=== PATIENT | female | born 1990 | race African-American/Black ===

== ENCOUNTER 2024-11-18 14:02 | Emergency (ER) | payer MEDICAID, SELFPAY ==
[2024-11-18 14:07] VITALS: BP 142/60; PULSE 82; RESP 16; TEMP 36.8; O2SAT 98; BMI 22.7
--- NOTE | 2024-11-18 14:07 | ED.ALLEREA ---
HPI - Allergic Reaction General Chief complaint: Skin/Abscess/Foreign Body Stated complaint: Allergic reaction Time Seen by Provider: 11/18/24 17:43 Source: patient Mode of arrival: ambulatory Limitations: no limitations History of Present Illness ED Provider: Dr. Barron HPI narrative: 34-year-old female history of allergies to seafood presented hospital today for evaluation of rash on her face and her body. 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 Patient is requesting a biopsy at this time. I discussed with the patient that we do not offer biopsy in the ER. She knows that this rash is pruritic in nature and it is spreading. Dermatology office stated that this eczema. She does have follow up in 2 weeks with dermatology office. Recently ate some seafood where she is allergic to. Related Data Previous Rx's ?Medication ?Instructions ?Recorded methylprednisolone 4 mg tablets in 4 mg PO PER PKG DIR #21 ea 11/18/24 a dose pack (Medrol (Mario)) Allergies Allergy/AdvReac Type Severity Reaction Status Date / Time No Known Allergies Allergy Verified 11/18/24 14:10 Review of Systems Review of Systems: Pertinent review of systems as mentioned in HPI. All other system otherwise negative. [facility] Past Medical History [facility] Narrative: Medical history as mentioned in HPI Social History Social History Smoked in Last 30 Days: No Use of substances other than those prescribed or required for medical reasons: No Advance Directives: No Advance Directives Information Provided: No Do you have a plan to hurt others: No Plan Physical Exam ED Exam Exam: General: Pleasant, no distress, interacting appropriately Head: Normacephalic, atraumatic Skin: Warm and dry, rash on her face appear to be scaly and pruritic in nature rash on her left forearm Psychiatric: Appropriate mood and thoughts Vital Signs: Vital Signs - 24 hr 11/18/24 14:07 11/18/24 18:09 Temperature 98.2 F 98.2 F Pulse Rate 82 82 Respiratory Rate 16 16 Blood Pressure 142/60 H 142/60 H Pulse Oximetry 98 98 Oxygen Delivery Method Room Air Room Air BMI result Body Mass Index 22.7 Course Course Course Narrative: This is an RME: Additional HPI, ROS, PE not included below will be deferred to primary provider. RME assessment and note performed by: Jewell Garay PA-C This is a 39-ni[age]-female, with a hx of hashimotos, and eczema, who presents to the ER with concerns of allergic rxn. Reports that last week she went to a warp knitting machine operator. Was prescribed hydrocortisone. Reports that she has skin darkening on her face. Reporting the area is very itchy. Started on friday. Reports she now has discoloration on her arms and legs. Plan: labs, further ER eval needed Medical Decision Making Medical Decision Making [facility] Narrative: This is a 34-year-old female presented hospital today for pruritic rash evaluation. On my exam this appears to be eczema. Likely started from her allergic reaction to seafood. We will plan to discharge patient with a Medrol Dosepak for steroids. Encouraged conservative treatment with ointment over the rash to help with dryness. This is a follow up appointment with Dermatology team. Discussed with patient that we do not do biopsy in the ER here. Patient will be discharged Differential Diagnosis Differential Diagnoses: The differential diagnosis associated with the presentation includes Eczema, dermatitis, hives, urticaria, cellulitis Lab Data [facility] Lab Attestation statement: I reviewed the patient's lab results. 11/18/24 15:07 11/18/24 15:07 Labs: Lab Results 11/18/24 Range/Units 15:07 WBC 5.1 (4.8-10.8) X10*3/uL RBC 4.55 (4.20-5.50) X10*6/uL Hgb 13.7 (12.0-16.0) g/dl Hct 40.0 (37.0-47.0) % MCV 87.9 (80.0-98.0) fL MCH 30.1 (27.0-33.0) pg MCHC 34.3 (31.0-35.0) g/dl RDW 13.1 (11.0-16.0) % Plt Count 255 (160-400) X10*3/uL MPV 10.4 (9.4-12.3) fL Immature Gran % (Auto) 0.2 (0.0-0.4) % Neut % (Auto) 49.6 (45-73) % Lymph % (Auto) 42.2 H (20-40) % [place] % (Auto) 6.6 (2-11) % Eos % (Auto) 0.8 (0-4) % Baso % (Auto) 0.6 (0-2) % Lymph # (Auto) 2.2 (1.2-4.9) X10*3/uL [place] # (Auto) 0.3 (0.1-1.2) X10*3/uL Eos # (Auto) 0.0 (0.0-0.4) X10*3/uL Baso # (Auto) 0.0 (0.0-0.2) X10*3/uL Abs Immat Gran (auto) 0.01 (0.00-0.03) X10*3/uL Absolute Neuts (auto) 2.6 (2.0-8.3) x10*3/uL Absolute Nucleated RBC 0.000 (0.0-0.012) X10*3/uL Nucleated RBC % (auto) 0.0 (0.0-0.2) /100WBC Sodium 140 (135-145) mmol/L Potassium 3.7 (3.3-5.1) mmol/L Chloride 108 (96-108) mmol/L Carbon Dioxide 24 (22-29) mmol/L Anion Gap 12 (12-20) BUN 7 L (9-16) mg/dL Creatinine 0.81 (0.5-1.4) mg/dL Estim Creat Clear Calc 87.2 Estimated GFR > 60 Random Glucose 86 (60-115) mg/dL Calcium 9.0 (8.4-10.2) mg/dL Total Bilirubin 0.3 (0.0-1.0) mg/dL AST 23 (5-31) U/L ALT 21 (0-31) U/L Alkaline Phosphatase 49 (39-117) U/L Total Protein 7.4 (6.5-8.0) g/dL Albumin 4.7 (3.5-5.0) g/dL Beta HCG, Quant < 2 mIU/mL Discharge Plan Discharge Clinical Impression: Allergic dermatitis Patient Disposition: Home, Self-Care Instructions: Dermatitis (ED) Additional Instructions: Use ointment over your rash such as vaseline. You can also use Cerave over the counter cream to help. Take benadryl as needed for itching. I will plan to send some steroids to help with the itching. Follow up with your warp knitting machine operator Prescriptions: New methylprednisolone [Medrol (Mario)] 4 mg tablets,dose pack 4 mg PO PER PKG DIR Qty: 21 0RF Interventions: ED Discharge Assessment Last Done: 11/18/24 18:09 Discharge Date/Time: 11/18/24 18:09 Print Language: Divehi
[2024-11-18 15:10] LABS: MANUAL DIFF FLAG NO
[2024-11-18 15:14] LABS: Hematocrit 40.0 % (37.0-47.0); Hemoglobin 13.7 g/dl (12.0-16.0); Imm Gran Abs Auto 0.01 X10*3/uL (0.00-0.03); Imm Gran Pct Auto 0.2 % (0.0-0.4); Lymphocytes Absolute Auto 2.2 X10*3/uL (1.2-4.9); Mean Corpuscular HGB Conc 34.3 g/dl (31.0-35.0); Mean Corpuscular Hemoglobin 30.1 pg (27.0-33.0); Mean Corpuscular Volume 87.9 fL (80.0-98.0); NRBC Abs Auto 0.000 X10*3/uL (0.0-0.012); NRBC Pct Auto 0.0 /100WBC (0.0-0.2); Platelet Count 255 X10*3/uL (160-400); Red Blood Count 4.55 X10*6/uL (4.20-5.50); White Blood Count 5.1 X10*3/uL (4.8-10.8)
[2024-11-18 15:34] LABS: Alanine Aminotransferase 21 U/L (0-31); Albumin Level 4.7 g/dL (3.5-5.0); Alkaline Phosphatase 49 U/L (39-117); Anion Gap 12 (12-20); Aspartate Amino Transferase 23 U/L (5-31); Blood Urea Nitrogen 7 mg/dL (9-16); Calcium 9.0 mg/dL (8.4-10.2); Carbon Dioxide 24 mmol/L (22-29); Chloride 108 mmol/L (96-108); Creatinine Clr Calc Pharmacy 87.2; Estimated Glomerular Filt Rate > 60; Potassium 3.7 mmol/L (3.3-5.1); Sodium 140 mmol/L (135-145); Total Protein 7.4 g/dL (6.5-8.0)
[2024-11-18 18:09] VITALS: BP 142/60; PULSE 82; RESP 16; TEMP 36.8; O2SAT 98
--- OUTSIDE RECORDS SUMMARY | 2024-11-18 20:01 | XMS_ITS | Encounter Summary ---
Author Organization [facility] Address [address] [place] [address] Phone Care Team Providers Care Wheelchair Rental Clerk Name Role Phone [facility] Primary Care Provide r [facility] Stephanie Josette [facility] Primary Care Provide r [facility] Stephanie Josette [facility] Unavailable Jenny Emerson PA-C Unavailable Encounter Details Date Type Department Care Team (Late st Contact Info) Description 09/29/2024 Ancillary Orders [facility], X-Ray - [address] [place] [address] [facility] [address] [place] [address] Upper back pain (Primary Dx); Pain in shoulder region, right; Pain in shoulder region, left Social History Tobacco Use Types Packs/Day Years Used Date Smoking Tobacco: Never Smokeless Tobacco: Never Alcohol Use Standard Drinks/Week Comments No 0 (1 standard drink = 0.6 oz pur e alcohol) Education Answer Date Recorded Are you interested in more education? Not on andres e 06/21/2022 Are you concerned about learning? Not on file 06/21/2022 No 06/21/2022 No 06/21/2022 Digital Access Answer Date Recorded No 07/19/2022 No 07/19/2022 Reliable internet access at home? Not on file 07/19/2022 Device with a working camera? Not on file Intimate Partner Violence Answer Date R ecorded Are you denied basic needs s uch as food, clothing, or medical care? No 03/06/2023 In the past 12 months have y ou been in a relationship with a person who hurts, threatens, or tries to control you? No 03/06/2023 Are you denied basic needs s uch as food, clothing, or medical care? No 03/06/2023 In the past 12 months have y ou been in a relationship with a person who hurts, threatens, or tries to control you? 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 Narrative 10/02/2024 6:57 AM EDT XR CERVICAL SPINE 2-3 VIEWS, XR THORACIC SPINE 3 VIEW, XR SHOULDER 2 OR MORE VIEWS (RIGHT), XR SHOULDER 2 OR MORE VIEWS (LEFT) Referring clinician's provided indication for this examination in Epic: Pain COMPARISON: FINDINGS: Normal cervical spine alignment. The open-mouth view reveals an intact dens and normal alignment of the C1 lateral masses on C2. No prevertebral soft tissue swelling. Unremarkable lumbar spine alignment. No compression fracture or significant degenerative change. Both shoulders demonstrate normal alignment without evidence of fracture or significant degenerative change. Procedure Note Rogers Linares MD - 10/02/2024 XR CERVICAL SPINE 2-3 VIEWS, XR THORACIC SPINE 3 VIEW, XR SHOULDER 2 ORMORE VIEWS (RIGHT), XR SHOULDER 2 OR MORE VIEWS (LEFT) Referring clinician's provided indication for this examination in Epic:Pain COMPARISON: FINDINGS: Normal cervical spine alignment. The open-mouth view reveals an intactdens and normal alignment of the C1 lateral masses on C2. No prevertebralsoft tissue swelling. Unremarkable lumbar spine alignment. No compression fracture orsignificant degenerative change. Both shoulders demonstrate normal alignment without evidence of fractureor significant degenerative change. IMPRESSION: No acute osseous abnormality. [facility] IM XR SPINE Final Result * XR SHOULDER 2 VIEWS (RIGHT) (10/01/2024 9:15 AM EDT) Anatomical Region Laterality Modality Shoulder Right Computed Radiogr aphy 10/02/2024 6:55 AM EDT Impressions 10/02/2024 6:57 AM EDT No acute osseous abnormality. Narrative 10/02/2024 6:57 AM EDT XR CERVICAL SPINE 2-3 VIEWS, XR THORACIC SPINE 3 VIEW, XR SHOULDER 2 OR MORE VIEWS (RIGHT), XR SHOULDER 2 OR MORE VIEWS (LEFT) Referring clinician's provided indication for this examination in Epic: Pain COMPARISON: FINDINGS: Normal cervical spine alignment. The open-mouth view reveals an intact dens and normal alignment of the C1 lateral masses on C2. No prevertebral soft tissue swelling. Unremarkable lumbar spine alignment. No compression fracture or significant degenerative change. Both shoulders demonstrate normal alignment without evidence of fracture or significant degenerative change. Procedure Note Rogers Linares MD - 10/02/2024 XR CERVICAL SPINE 2-3 VIEWS, XR THORACIC SPINE 3 VIEW, XR SHOULDER 2 ORMORE VIEWS (RIGHT), XR SHOULDER 2 OR MORE VIEWS (LEFT) Referring clinician's provided indication for this examination in Epic:Pain COMPARISON: FINDINGS: Normal cervical spine alignment. The open-mouth view reveals an intactdens and normal alignment of the C1 lateral masses on C2. No prevertebralsoft tissue swelling. Unremarkable lumbar spine alignment. No compression fracture orsignificant degenerative change. Both shoulders demonstrate normal alignment without evidence of fractureor significant degenerative change. IMPRESSION: No acute osseous abnormality. [facility] CHECK WEIGHER IMG XR UPPER EXTREMIT Y Final Result * XR SHOULDER 2 VIEWS (LEFT) (10/01/2024 9:14 AM EDT) Anatomical Region Laterality Modality Shoulder Left Computed Radiogr aphy 10/02/2024 6:55 AM EDT Impressions 10/02/2024 6:57 AM EDT No acute osseous abnormality. Narrative 10/02/2024 6:57 AM EDT XR CERVICAL SPINE 2-3 VIEWS, XR THORACIC SPINE 3 VIEW, XR SHOULDER 2 OR MORE VIEWS (RIGHT), XR SHOULDER 2 OR MORE VIEWS (LEFT) Referring clinician's provided indication for this examination in Epic: Pain COMPARISON: FINDINGS: Normal cervical spine alignment. The open-mouth view reveals an intact dens and normal alignment of the C1 lateral masses on C2. No prevertebral soft tissue swelling. Unremarkable lumbar spine alignment. No compression fracture or significant degenerative change. Both shoulders demonstrate normal alignment without evidence of fracture or significant degenerative change. Procedure Note Rogers Linares MD - 10/02/2024 XR CERVICAL SPINE 2-3 VIEWS, XR THORACIC SPINE 3 VIEW, XR SHOULDER 2 ORMORE VIEWS (RIGHT), XR SHOULDER 2 OR MORE VIEWS (LEFT) Referring clinician's provided indication for this examination in Epic:Pain COMPARISON: FINDINGS: Normal cervical spine alignment. The open-mouth view reveals an intactdens and normal alignment of the C1 lateral masses on C2. No prevertebralsoft tissue swelling. Unremarkable lumbar spine alignment. No compression fracture orsignificant degenerative change. Both shoulders demonstrate normal alignment without evidence of fractureor significant degenerative change. IMPRESSION: No acute osseous abnormality. [facility] Josette [facility] CHECK WEIGHER IMG XR UPPER EXTREMIT Y Final Result * XR CERVICAL SPINE 2-3 VIEWS (10/01/2024 9:12 AM EDT) Anatomical Region Laterality Modality C-spine Computed Radiogr aphy 10/02/2024 6:55 AM EDT Impressions 10/02/2024 6:57 AM EDT No acute osseous abnormality. Narrative 10/02/2024 6:57 AM EDT XR CERVICAL SPINE 2-3 VIEWS, XR THORACIC SPINE 3 VIEW, XR SHOULDER 2 OR MORE VIEWS (RIGHT), XR SHOULDER 2 OR MORE VIEWS (LEFT) Referring clinician's provided indication for this examination in Epic: Pain COMPARISON: FINDINGS: Normal cervical spine alignment. The open-mouth view reveals an intact dens and normal alignment of the C1 lateral masses on C2. No prevertebral soft tissue swelling. Unremarkable lumbar spine alignment. No compression fracture or significant degenerative change. Both shoulders demonstrate normal alignment without evidence of fracture or significant degenerative change. Procedure Note Rogers Linares MD - 10/02/2024 XR CERVICAL SPINE 2-3 VIEWS, XR THORACIC SPINE 3 VIEW, XR SHOULDER 2 ORMORE VIEWS (RIGHT), XR SHOULDER 2 OR MORE VIEWS (LEFT) Referring clinician's provided indication for this examination in Epic:Pain COMPARISON: FINDINGS: Normal cervical spine alignment. The open-mouth view reveals an intactdens and normal alignment of the C1 lateral masses on C2. No prevertebralsoft tissue swelling. Unremarkable lumbar spine alignment. No compression fracture orsignificant degenerative change. Both shoulders demonstrate normal alignment without evidence of fractureor significant degenerative change. IMPRESSION: No acute osseous abnormality. [facility] Josette CASTRO IMG XR SPINE Final Result documented in this encounter Visit Diagnoses Diagnosis Upper back pain- Primary Unspecified backache Pain in shoulder region, right Pain in shoulder region, left Upper back pain Unspecified backache Pain in shoulder region, left Pain in shoulder region, right Upper back pain Unspecified backache documented in this encounter Care Teams Wheelchair Rental Clerk Relationship Specialty Start Date End Date [place], [place] GLORIA Finch [address] [place] [address] PCP - General Nurse Practitioner 09/29/24 11/08/24 [place], [place] GLORIA Finch [address] [place] [phone] PCP - General Nurse Practitioner 11/09/24 [place], [place] GLORIA Finch [address] [place] [phone] Nurse Practitioner 11/09/24 Jenny Emerson PA-C [address] [place] [phone] [email or web address] Physician Jewel Bearing Facer Physician Jewel Bearing Facer 07/14/24 documented as of this encounter Additional Source Comments The information contained in this document represents components of the legal health record. It is not the complete legal health record.[facility]
--- OUTSIDE RECORDS SUMMARY | 2024-11-18 20:01 | XMS_ITS | Encounter Summary ---
Author Organization [facility] Address [address] [place] [address] Phone Care Team Providers Care Assistant Vice President Name Role Phone [facility] Primary Care Provide r [facility] Primary Care Provide r [facility] Primary Care Provide r [facility] Unavailable Jenny Emerson PA-C Unavailable [phone] Encounter Details Date Type Department Care Team (Late st Contact Info) Description 07/01/2024 Procedure Pass OR Admitting Dept - Virtual Department [address] [place] [address] Social History Tobacco Use Types Packs/Day Years [...] Upcoming Encounters Date Type Department Care Team (Late st Contact Info) Description 12/02/2024 11:30 AM EDT Office [facility] [address] [place] [phone] Dee Larsen MD [address] [place] [address] documented as of this encounter Visit Diagnoses Not on filedocumented in this encounter Care Teams Assistant Vice President Relationship Specialty Start Date End Date Javier Stephanie GLORIA Finch PCP - General Nurse Practitioner 10/30/23 09/28/24 [facility] [address] [place] [address] PCP - General Nurse Practitioner 09/29/24 11/08/24 Stephanie Herrera FNP [address] [place] [address] PCP - General Nurse Practitioner 11/09/24 Stephanie Herrera FNP [address] [place] [address] Nurse Practitioner 11/09/24 Jenny Emerson PA-C [address] [place] [phone] [email or web address] Physician Blade Grader Operator Physician Blade Grader Operator 07/14/24 documented as of this encounter Additional Source Comments The information contained in this document represents components of the legal health record. It is not the complete legal health record.[facility]
--- OUTSIDE RECORDS SUMMARY | 2024-11-18 20:01 | XMS_ITS | Encounter Summary ---
Author Organization [facility] Address [address] [place] [address] Phone Care Team Providers Care Film Processing Utility Worker Name Role Phone [facility] Stephanie Josette [facility] Primary Care Provide r [place], [place] Josette [facility] Primary Care Provide r [place], [place] Josette [facility] Primary Care Provide r [place], [place] Josette [facility] Unavailable [phone] Jenny Emerson PA-C Unavailable Encounter Details Date Type Department Care Team (Late st Contact Info) Description 07/15/2024 Transcribe Orders [facility] Specimen Processing [address] [place] [address] [place], [place] Josette [facility] [address] [place] [address] Social History Tobacco Use Types Packs/Day Years [...] Upcoming Encounters Date Type Department Care Team ([facility] st Contact Info) Description 12/02/2024 11:30 AM EDT Office Visit [facility] [address] [place] [phone] Dee Larsen MD [address] [place] [phone] documented as of this encounter Visit Diagnoses Not on filedocumented in this encounter Care Teams Film Processing Utility Worker Relationship Specialty Start Date End Date Stephanie Herrera FNP PCP - General Nurse Practitioner 10/30/23 09/28/24 Stephanie Herrera FNP [address] [place] [address] PCP - General Nurse Practitioner 09/29/24 11/08/24 Stephanie Herrera FNP [address] [place] [address] PCP - General Nurse Practitioner 11/09/24 Stephanie Herrera FNP [address] [place] [address] Nurse Practitioner 11/09/24 Jenny Emerson PA-C [address] [place] [phone] [email or web address] Physician Warehouse Distribution Specialist Physician Warehouse Distribution Specialist 07/14/24 documented as of this encounter Additional Source Comments The information contained in this document represents components of the legal health record. It is not the complete legal health record.[facility]
--- OUTSIDE RECORDS SUMMARY | 2024-11-18 20:01 | XMS_ITS | Encounter Summary ---
Author Organization [employer] Address [address] [facility] [address] [place] [address] Care Team Providers Care Machine Bobbin Winder Name Role Phone Stephanie Herrera [facility] Primary Care Provider [phone] Reason for Visit * Reason Comments Med Refill Encounter Details Date Type Department Care Team (Late st Contact Info) Description 05/29/2024 Refill [place] [facility] [address] [place] [address] [facility] [address] [place] [address] Anxiety; Depressive disorder Social History Tobacco Use Types Packs/Day Years Used Date Smoking Tobacco: Never Smokeless Tobacco: Never Alcohol Use Standard Drinks/Week Comments Yes 1 (1 standard drink = 0.6 oz pure alcohol) few glasses of wine on the weekend Housing Stability Answer Date Recorded What is your housing situation today? I have te[place] recinos 11/27/[address] you li ve. Do you have problems with any of the following? I am not sure 11/27/2023 Food Insecurity Answer Date Recorded Within the past 12 months, y ou worried that your food would run out before you got money to buy more: Never True 11/27/2023 Within the past 12 months,th e food you bought just didn't last and you didn't have enough money to get more: Never True 04/2023 Transportation Answer Date Recorded In the past 12 months, has l ack of transportation kept you from medical appts, meetings, work or from getting things needed for daily living? No 11/27/2023 Utilities Answer Date Recorded In the past 12 months, has t he electric, gas, oil or water company threatened to shut off services in your home? 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 [address] [place] [address] [facility] [address] [place] [address] 12/23/2024 10:20 AM EDT Office Visit [facility] [address] [place] [address] [facility] [address] [place] [address] documented as of this encounter Visit Diagnoses Diagnosis Anxiety Anxiety state, unspecified Depressive disorder Depressive disorder, not elsewhere classified documented in this encounter Care Teams Machine Bobbin Winder Relationship Specialty Start Date End Date [facility] [address] [place] [address] PCP - General Family Medicine 03/28/22 documented as of this encounter
--- OUTSIDE RECORDS SUMMARY | 2024-11-18 20:01 | XMS_ITS | Encounter Summary ---
Author Organization [employer] Address [address] [place] [address] 7 [place] [address] Care Team Providers Care Make Up Artist Name Role Phone [facility] Primary Care Provider +1 [phone] Encounter Details Date Type Department Care Team (Latest Contact Info) Description 12/04/2018 [facility] CONVERSIONS Dental, Provider, DDS Social History Tobacco Use Types Packs/Day Years Used Date Smoking Tobacco: Never Assessed Comments Unknown Sex and Gender Information Value Date Recorded Sex Assigned at Female 04/03/2022 10:00 AM EST Legal Sex Female 5:35 PM EDT Gender Identity Female 04/03/2022 10:00 AM EST Sexual Orientation Straight 04/03/2022 10 :05 AM EST documented as of this encounter Plan of Treatment Upcoming Encounters Date Type Department Care Team (Late st Contact Info) Description 11/19/2024 2:[address] [facility] MEDICAL [address] [place] [address] [facility] 70 [place] [address] 12/23/2024 10:20 AM EDT Office Visit [facility] MEDICAL [address] [place] [address] [facility] 70 [place] [address] documented as of this encounter Visit Diagnoses Not on filedocumented in this encounter Care Teams Make Up Artist Relationship Specialty Start Date End Date [place], [place] [facility] 70 [place] [address] PCP - General Family Medicine 03/28/22 documented as of this encounter
--- OUTSIDE RECORDS SUMMARY | 2024-11-18 20:01 | XMS_ITS | Encounter Summary ---
Author Organization [employer] Address [address] [place] [address] 7 [place] [address] Care Team Providers Care Chemicals Distiller Name Role Phone [facility] Primary Care Provider +1 [phone] Encounter Details Date Type Department Care Team (Latest Contact Info) Description 05/15/2018 Abstract [facility] CONVERSIONS Dental, Provider, DDS Social [...] Info) Description 11/19/2024 2:00 PM EDT Telemedicine [facility] MEDICAL [address] [place] [address] [facility] 70 [place] [address] 12/23/2024 10:20 AM EDT Office Visit [facility] MEDICAL 70 [place] [address] [facility] 70 [place] [address] documented as of this encounter Visit Diagnoses Not on filedocumented in this encounter Care Teams Chemicals Distiller Relationship Specialty Start Date End Date [place], [place] [facility] 70 [place] [address] PCP - General Family Medicine 03/28/22 documented as of this encounter
--- OUTSIDE RECORDS SUMMARY | 2024-11-18 20:01 | XMS_ITS | Encounter Summary ---
Author Organization [facility] Address [address] [place] [address] Phone Care Team Providers Care Chro Name Role Phone Edinson Miles MD Primary Care Provider Pcp, Unknown Primary Care Provider Unavailabl e [facility] Primary Care Provide r [facility] Primary Care Provide r [facility] Primary Care Provide r [facility] Primary Care Provide r [facility] Unavailable Jenny Emerson PA-C Unavailable Encounter Details Date Type Department Care Team (Late st Contact Info) Description 08/29/2017 Procedure Pass [facility] Procedures [address] [place] [address] Social History Tobacco Use Types Packs/Day Years Used Date Smoking Tobacco: Never Smokeless Tobacco: Never Alcohol Use Standard Drinks/Week Comments No 0 (1 standard drink = 0.6 oz pur e alcohol) Comments No Sex and Gender Information Value [...] [facility] [address] [place] [address] Dee Larsen MD [address] [place] [address] [place] [address] documented as of this encounter Visit Diagnoses Not on filedocumented in this encounter Care Teams Chro Relationship Specialty Start Date End Date Edinson Miles MD [address] [place] [address], 2nd [place] [address] PCP - General Internal Medicine 01/24/17 11/29/18 Pcp, Unknown PCP - General 11/30/18 05/16/22 [place], [place] GLORIA Finch PCP - General Nurse Practitioner 05/17/22 10/29/23 [place], [place] GLORIA Finch PCP - General Nurse Practitioner 10/30/23 09/28/24 [place] GLORIA Finch 70 [place] [address] PCP - General Nurse Practitioner 09/29/24 11/08/24 [place], [place] GLORIA Finch 70 [place] [address] PCP - General Nurse Practitioner 11/09/24 Stephanie Herrera FNP 70 [place] [address] Nurse Practitioner 11/09/24 Jenny Emerson PA-C [address] [place] [address] [email or web address] Physician Bookkeeping Service Sales Agent Physician Bookkeeping Service Sales Agent 07/14/24 documented as of this encounter Additional Source Comments The information contained in this document represents components of the legal health record. It is not the complete legal health record.[facility]
--- OUTSIDE RECORDS SUMMARY | 2024-11-18 20:01 | XMS_ITS | Encounter Summary ---
Author Organization [employer] Address [address] [place] [address] 7 [place] [address] Care Team Providers Care Steel Erector Name Role Phone [facility] Primary Care Provider +1 [phone] Encounter Details Date Type Department Care Team (Latest Contact Info) Description 10/29/2019 Abstract [facility] CONVERSIONS Dental, Provider, DDS Social [...] Description 11/19/2024 2:[address] [facility] MEDICAL [address] [place] [address] [facility] 70 [place] [address] 12/23/2024 10:20 AM EDT Office Visit [facility] MEDICAL [address] [place] [address] [facility] 70 [place] [address] documented as of this encounter Visit Diagnoses Not on filedocumented in this encounter Care Teams Steel Erector Relationship Specialty Start Date End Date [place], [place] [facility] 70 [place] [address] PCP - General Family Medicine 03/28/22 documented as of this encounter
--- OUTSIDE RECORDS SUMMARY | 2024-11-18 20:01 | XMS_ITS | Encounter Summary ---
Author Organization [employer] Address [address] [facility] 7t [place] [address] Care Team Providers Care Flatbed Press Operator Name Role Phone [facility] Primary Care Provider +1 [phone] Encounter Details Date Type Department Care Team (Late st Contact Info) Description 05/13/2022 Orders Only [facility] MEDICAL [address] [place] [address] Provider, MD Yisel Social History Tobacco Use Types Packs/Day Years Used Date Smoking Tobacco: Never Smokeless Tobacco: Never Alcohol Use Standard Drinks/Week Comments Yes 3 (1 standard drink = 0.6 oz pure alcohol) few glasses of wine on the weekend Depression Answer Date Recorded Patient Health Questionnaire-2 Score 0 04/03/2022 Comments Unknown Sex and Gender Information Value Date Recorded Sex Assigned at Female 04/03/2022 10:00 AM EST Legal Sex Female 5:35 PM EDT Gender Identity Female 04/03/2022 10:00 AM EST Sexual Orientation Straight 04/03/2022 10 :05 AM EST 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 No / Unsure 05/14/2022 2:02 PM EDT documented as of this encounter Plan of Treatment Upcoming Encounters Date Type Department Care Team (Late st Contact Info) Description 11/19/2024 2:00 PM EDT Telemedicine [facility] MEDICAL 70 [place] [address] [facility] 70 [place] [address] 12/23/2024 10:20 AM EDT Office Visit [facility] MEDICAL [address] [place] [address] [facility] REVENUE RESEARCH ANALYST [address] [place] [address] documented as of this encounter Procedures Procedure Name Priority Date/Time Associated Diagnosis Comments CHLAMYDIA/GONORRHEA - URINE ([facility]) Routine 05/02/2022 CULTURE, URINE, ROUTINE Routine 05/02/2022 documented in this encounter Results * Culture, Urine, Routine (05/02/2022) Urine Urine specimen obtained by clean catch procedure / Unknown us Historical Provider LAB MICROBIOLOGY - GENERA L ORDERABLES Edited Result - Final * Chlamydia/Gonorrhea, Urine ([facility]) (05/02/2022) Urine us Historical Provider LAB URINE ORDERABLES Edit ed Result - Final documented in this encounter Visit Diagnoses Not on filedocumented in this encounter Care Teams Flatbed Press Operator Relationship Specialty Start Date End Date Stephanie Herrera REVENUE RESEARCH ANALYST [address] [place] [address] PCP - General Family Medicine 03/28/22 documented as of this encounter
--- OUTSIDE RECORDS SUMMARY | 2024-11-18 20:01 | XMS_ITS | Encounter Summary ---
Author Organization [facility] Address [address] [facility] [address] [place] [address] Phone Care Team Providers Care Attending Psychiatrist Name Role Phone Edinson Miles MD Primary Care Provider Pcp, Unknown Primary Care Provider Unavailabl e [facility] Primary Care Provide r [facility] Primary Care Provide r [facility] Primary Care Provide r [facility] Primary Care Provide r [facility] Unavailable Jenny Emerson PA-C Unavailable Encounter Details Date Type Department Care Team (Late st Contact Info) Description 04/02/2017 Ancillary Orders [facility] [address] [place] [address] [place] [address] Kinsey Bell, CLARE [address] [facility] [facility], [address] [place] [address] Social History Tobacco Use Types Packs/Day Years Used Date Smoking Tobacco: Never Smokeless Tobacco: Never Alcohol Use Standard Drinks/Week Comments No 0 (1 standard drink = 0.6 oz pur e alcohol) Comments Yes Sex and Gender Information Value Date Recorded [...] Office Visit [facility] [address] [place] [phone] Dee Larsen MD [address] [place] [address] documented as of this encounter Visit Diagnoses Not on filedocumented in this encounter Care Teams Attending Psychiatrist Relationship Specialty Start Date End Date Edinson Miles MD [address] [place] [address], 2nd [place] [address] PCP - General Internal Medicine 01/24/17 11/29/18 Pcp, Unknown PCP - General 11/30/18 05/16/22 Stephanie Herrera FNP PCP - General Nurse Practitioner 05/17/22 10/29/23 Stephanie Herrera FNP PCP - General Nurse Practitioner 10/30/23 09/28/24 Stephanie Herrera FNP 70 [place] [address] PCP - General Nurse Practitioner 09/29/24 11/08/24 Stephanie Herrera FNP 70 [place] [address] PCP - General Nurse Practitioner 11/09/24 Stephanie Herrera FNP 70 [place] [address] Nurse Practitioner 11/09/24 Jenny Emerson PA-C [address] [place] [phone] [email or web address] Physician Fern Gatherer Physician Fern Gatherer 07/14/24 documented as of this encounter Additional Source Comments The information contained in this document represents components of the legal health record. It is not the complete legal health record.[facility]
--- OUTSIDE RECORDS SUMMARY | 2024-11-18 20:01 | XMS_ITS | Encounter Summary ---
Author Organization [employer] Address [address] [place] [address] [facility] [place] [address] Care Team Providers Care Earth Science Teacher Name Role Phone [facility] Primary Care Provider +1 [phone] Encounter Details Date Type Department Care Team (Latest Contact Info) Description 11/13/2021 Abstract [facility] CONVERSIONS Dental, Provider, DDS Social [...] Info) Description 11/19/2024 2:00 PM EDT Telemedicine [facility] MEDICAL 70 [place] [address] [facility] 70 [place] [address] 12/23/2024 10:20 AM EDT Office Visit [facility] MEDICAL 70 [place] [address] [facility] 70 [place] [address] documented as of this encounter Visit Diagnoses Not on filedocumented in this encounter Care Teams Earth Science Teacher Relationship Specialty Start Date End Date [place], [place] [facility] 70 [place] [address] PCP - General Family Medicine 03/28/22 documented as of this encounter
--- OUTSIDE RECORDS SUMMARY | 2024-11-18 20:01 | XMS_ITS | Encounter Summary ---
Author Organization [facility] Address [address] [facility] [address] [place] [address] Phone Care Team Providers Care Segmental Wall Installer Name Role Phone Edinson Miles MD Primary Care Provider Pcp, Unknown Primary Care Provider Unavailabl e [facility] Primary Care Provide r [facility] Primary Care Provide r [facility] Primary Care Provide r [facility] Primary Care Provide r [facility] Unavailable Jenny Emerson PA-C Unavailable Encounter Details Date Type Department Care Team (Late st Contact Info) Description 04/02/2017 Ancillary Orders [facility] [address] [place] [address] [place] [address] Kinsey Bell, LCARE 22 [facility], [address] [place] [address] Social History Tobacco Use Types Packs/Day Years [...] Office Visit [facility] [address] [place] [phone] Dee Larsen MD [address] [place] [address] documented as of this encounter Visit Diagnoses Not on filedocumented in this encounter Care Teams Segmental Wall Installer Relationship Specialty Start Date End Date Edinson Mlies MD [address] [place] [address], 2nd [place] [address] PCP - General Internal Medicine 01/24/17 11/29/18 Pcp, Unknown PCP - General 11/30/18 05/16/22 Stephanie Herrera FNP PCP - General Nurse Practitioner 05/17/22 10/29/23 Stephanie Herrera FNP PCP - General Nurse Practitioner 10/30/23 09/28/24 Stephanie Herrera FNP 70 [place] [address] PCP - General Nurse Practitioner 09/29/24 11/08/24 Stephanie Herrera FNP 70 [place] [address] PCP - General Nurse Practitioner 11/09/24 Stephanie Herrera FNP 70 [place] [address] Nurse Practitioner 11/09/24 Jenny Emerson PA-C [address] [place] [address] [email or web address] Physician Project Landscape Architect Physician Project Landscape Architect 07/14/24 documented as of this encounter Additional Source Comments The information contained in this document represents components of the legal health record. It is not the complete legal health record.[facility]
--- OUTSIDE RECORDS SUMMARY | 2024-11-18 20:01 | XMS_ITS | Encounter Summary ---
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 [address] [facility] 70 [place] [address] 12/23/2024 10:20 AM EDT Office Visit [facility] MEDICAL 70 [place] [address] [facility] 70 [place] [address] documented as of this encounter Visit Diagnoses Not on filedocumented in this encounter Care Teams Material Requirements Planning Manager Relationship Specialty Start Date End Date [place], [place] [facility] 70 [place] [address] PCP - General Family Medicine 03/28/22 documented as of this encounter
--- OUTSIDE RECORDS SUMMARY | 2024-11-18 20:01 | XMS_ITS | Encounter Summary ---
Author Organization [facility] Address [address] [place] [address] Phone Care Team Providers Care Tapering Machine Operator Name Role Phone [facility] Primary Care Provide r [facility] Primary Care Provide r [facility] Primary Care Provide r [facility] Primary Care Provide r [facility] Unavailable Jenny Emerson PA-C Unavailable Encounter Details Date Type Department Care Team (Latest Contact Info) Description 10/28/2023 Transcribe Orders Virtual Department 30 [place] [address] Denisse Yates NP [address] [place] [address] Acquired hypothyroidism (Primary Dx) Social History Tobacco Use Types Packs/Day Years [...] Upcoming Encounters Date Type Department Care Team ([facility] st Contact Info) Description 12/02/2024 11:30 AM EDT Office Visit [facility], [address] [phone] Dee Larsen MD [address] [place] [address] documented as of this encounter Visit Diagnoses Diagnosis Acquired hypothyroidism- Primary Unspecified hypothyroidism documented in this encounter Care Teams Tapering Machine Operator Relationship Specialty Start Date End Date Stephanie Herrera FNP PCP - General Nurse Practitioner 05/17/22 10/29/23 Stephanie Herrera FNP PCP - General Nurse Practitioner 10/30/23 09/28/24 Stephanie Herrera FNP 70 [place] [address] PCP - General Nurse Practitioner 09/29/24 11/08/24 Stephanie Herrera FNP [address] [place] [address] PCP - General Nurse Practitioner 11/09/24 Stephanie Herrera FNP 70 [place] [address] Nurse Practitioner 11/09/24 Jenny Emerson PA-C [address] [place] [address] [email or web address] Physician Referral Clerk Physician Referral Clerk 07/14/24 documented as of this encounter Additional Source Comments The information contained in this document represents components of the legal health record. It is not the complete legal health record.[facility]
--- OUTSIDE RECORDS SUMMARY | 2024-11-18 20:01 | XMS_ITS | Encounter Summary ---
Author Organization [employer] Address [address] 7t [place] [address] Care Team Providers Care Head Of Housekeeping Name Role Phone Stephanie Herrera [facility] Primary Care Provider [phone] [phone] Encounter Details Date Type Department Care Team (Late st Contact Info) Description 07/02/2024 Orders Only [facility] Information Management [address] [place] [address] Stephanie Herrera, [facility] [address] [place] [address] Social History Tobacco Use Types Packs/Day Years [...] 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 Not on file documented as of this encounter Plan of Treatment Upcoming Encounters Date Type Department Care Team (Late st Contact Info) Description 11/19/2024 2:00 PM EDT Telemedicine [address] [address] 12/23/2024 10:20 AM EDT Office Visit [address] [address] [facility] 70 [place] [address] documented as of this encounter Procedures Procedure Name Priority Date/Time Associated Diagnosis Comments SAÚL SCREEN, IFA, W/REFL TITER AND PATTERN Routine 06/30/2024 2:45 PM EDT ANTI-CCP (CYCLIC CITRULLINATED PEPTIDE) ABS, IGG AND IGA Routine 06/30/2024 12:00 PM EDT C-REACTIVE PROTEIN Routine 06/30/2024 10 :53 AM EDT documented in this encounter Results * SAÚL Screen,IFA, with Reflex to Titer and Pattern (06/30/2024 2:45 PM EDT) Blood Venous blood specimen / Unknown [facility] LAB BLOOD ORDERABLES Isha l Result * Anti-CCP (Cyclic Citrullinated Peptide) Antibodies, IgG and IgA (RDL) (06/30/2024 12:00 PM EDT) Blood Venous blood specimen / Unknown [facility] LAB BLOOD ORDERABLES Isha l Result * C-reactive Protein (06/30/2024 10:53 AM EDT) Blood Venous blood specimen / Unknown [facility] LAB BLOOD ORDERABLES Isha l Result documented in this encounter Visit Diagnoses Not on filedocumented in this encounter Care Teams Head Of Housekeeping Relationship Specialty Start Date End Date [facility] [address] [place] [address] PCP - General Family Medicine 03/28/22 documented as of this encounter
--- OUTSIDE RECORDS SUMMARY | 2024-11-18 20:01 | XMS_ITS | Clinical Summary ---
Author Organization [facility] Address [address] [place] [address] Phone Care Team Providers Care Weather Forcaster Name Role Phone [place], [place] Josette [facility] Primary Care Provide r [place], [place] Josette [facility] Unavailable Jenny Emerson PA-C Unavailable Allergies No known active allergies Medications levothyroxine (SYNTHROID, LEVOTHROID) 88 MCG tablet Take 88 mcg by mouth. 03/08/2024 Active Hospital, Clinic, or Other Facility Administered Medication Ordered Dose Route Frequency Start Date End Date Status copper (PARAGARD) intrauterine device 1 eachIndications:Encounte r for insertion of intrauterine contraceptive device 1 each Utrn Every 10 years 07/18/2022 Active Active Problems Problem Noted Date Diagnosed Date Request for sterilization 06/09/2024 Assessment & Plan (06/09/2024 2:48 PM EDT): Sterilization counseling was performed today. Discussed with patient risks of permanent sterilization including failure (i.e. ), high risk of ectopic if were to occur (50%). Discussed the possible option and/or need for IVF if is desired, which is also expensive and also usually not covered by insurance if patient has undergone a sterilization procedure. Discussed alternative methods of long-term reversible contraception, including IUDs, Nexplanon, and vasectomy, which patient declines. Discussed she can also use control such as depo, pills, patch, Nuvaring, or condoms. Permanent sterilization via laparoscopy was reviewed. After detailed discussed as noted above, patient continued to desire permanent sterilization. Valentin Uzhun papers signed 06/08/24. Case request submitted. Pelvic pain 09/16/2023 Assessment & Plan (06/09/2024 2:47 PM EDT): Pelvic exam unremarkable Patient with normal pelvic US 10/2023 Patient reports pain is mild, intermittent, typically positional, and resolves on its own No new recommendations regarding management Assessment & Plan (09/16/2023 7:26 PM EDT): This was a very lengthy visit, explained to her that it is possible she could have urinary tract infection, but the bladder is nontender on that fortunately the office policy is that we cannot do urine dips in the office. There are some findings and symptoms suggestive of uterine infection, as well as other findings for that are absent (such as fever or purulent discharge.) Given that there is an IUD in place and I am concerned that she may have an early uterine infection, I encouraged the option of taking treatment with an IM shot of ceftriaxone today which we have in the office and follow that with 7 days of doxycycline. After discussion the pros and cons of this, she decided she would prefer to have the antibiotics I confirmed her decision and after I silvino up the medication she decided the last minute not to take the antibiotics, she preferred to wait for white blood cell count and a sedimentation rate to see if that would indeed confirm a pelvic infection, therefore I discarded the medication placed the order for the blood work. If her symptoms worsen she can call the doctor on-call, she can also check tomorrow for the results of the urinalysis IUD (intrauterine device) in place 07/18/2022 Overview (07/18/2022): Paragard placed 07/18/2022 Resolved Problems Problem Noted Date Diagnosed Date Resolved Date delivery delivered 08/29/2017 09/02/2017 Normal , unspecified trimester 08/28/2017 08/29/2017 Breech presentation of fetus 08/28/2017 09/02/2017 Assessment & Plan (08/29/2017 8:33 AM EDT): Breech diagnosed on admission for induction 08/28/2017. Version scheduled for 08/29/2017 Breech presentation of fetus 08/28/2017 08/29/2017 Yeast vaginitis 02/06/2017 03/05/2017 Overview (03/05/2017): Rx for clotrimazole sent to pharmacy. 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 , antepartum 01/24/2017 08/30/19 18 Assessment & Plan (01/24/2017 2:53 PM EST): Prophylaxis at 36 weeks care and examinat ion of lactating mother 01/24/2017 07/18/2022 Overview (08/26/2017): Rh O+ Flu Declined Tdap * Hgb 11.8 GTT 92 GBS * PPBC * Breech presentation, no version 09/02/2017 Encounters Date Type Department Care Team Description 10/22/2024 8:49 AM EDT - 10/22/2024 11:59 PM EDT Hospital Encounter [facility] [address] [place] [address] Stephanie Herrera FNP Discharge Disposition: Home or Self Care 10/21/2024 8:22 AM EDT - 10/21/2024 11:59 PM EDT Hospital Encounter [facility] [address] [place] [address] Stephanie Herrera FNP Discharge Disposition: Home or Self Care 10/21/2024 Transcribe Orders [facility] [address] [place] [address] Stephanie Herrera FNP Myxedema heart disease (Primary Dx); Parathyroid disease 10/21/2024 Transcribe Orders [facility] [address] [place] [address] Stephanie Herrera FNP Myxedema heart disease (Primary Dx); Parathyroid disease 10/18/2024 Transcribe Orders [facility] [address] [place] [address] Stephanie Herrera FNP Parathyroid disorder (Primary Dx); 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 10/07/2024 12:50 PM EDT - 10/07/2024 11:59 PM EDT Hospital Encounter [facility] - [address] [place] [address] Stephanie Herrera FNP Discharge Disposition: Home or Self Care 10/01/2024 8:19 AM EDT - 10/01/2024 11:59 PM EDT Hospital Encounter [facility] - [address] [place] [address] Stephanie Herrera FNP Discharge Disposition: Home or Self Care 10/01/2024 8:19 AM EDT - 10/01/2024 11:59 PM EDT Hospital Encounter [facility], X-Ray - [address] [place] [address] Stephanie Herrera FNP Discharge Disposition: Home or Self Care 10/01/2024 8:19 AM EDT - 10/01/2024 11:59 PM EDT Hospital Encounter [facility], X-Ray - [address] [place] [address] Stephanie Herrera FNP Discharge Disposition: Home or Self Care 10/01/2024 8:19 AM EDT - 10/01/2024 11:59 PM EDT Hospital Encounter [facility], X-Ray - [address] [place] [address] Stephanie Herrera FNP Discharge Disposition: Home or Self Care 09/29/2024 12:02 PM EDT - 09/29/2024 11:59 PM EDT Hospital [facility] [address] [place] [address] [facility] Disposition: Home or Self Care 09/29/2024 Transcribe Orders Virtual Department [address] [facility] [place] [address] [facility] 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); Neck pain 09/29/2024 Ancillary Orders [facility], X-Ray - [address] [place] [address] [facility] Upper back pain (Primary Dx); Pain in shoulder region, right; Pain in shoulder region, left 09/14/2024 Telephone [facility] [address] [place] [address] Blanca Lopez MD Surgery Scheduling from Last 3 Months Immunizations Immunization Administration Dates Next Due INFLUENZA, SPLIT VIRUS, TRIVALENT W/ PRESERVATIV E IM 12/02/2013 Influenza Quadrivalent w/ Preservative IM 2020 PPD Test 11/26/2016 Tdap 06/25/2017,12/02/2013 Family History Medical History Relation Comments Hypertension Father Diabetes Mother Hypertension Mother Pancreatic cancer Paternal Grandmother Relation Status Comments Father Alive Maternal Grandfather Maternal Grandmother Alive Mother Alive Paternal Grandfather Paternal Grandmother Social History Tobacco Use Types Packs/Day Years Used Date Smoking Tobacco: Never Smokeless Tobacco: Never Tobacco Cessation:Counseling Given: Not Answered Alcohol Use Standard Drinks/Week Comments No 0 [...] file Not on file Not on file Last Filed Vital Signs Vital Sign Reading Time Taken Comments Blood Pressure 125/79 07/21/2024 9:00 AM EDT Pulse 79 07/21/2024 9:00 AM EDT Temperature 36.6 C (97.9 F) 07/21/2024 9:00 AM EDT Respiratory Rate 16 03/06/2023 9:40 PM EST Oxygen Saturation 100% 07/21/2024 9:00 AM EDT Inhaled Oxygen Concentration - - Weight 62.3 kg (137 lb 6.4 oz) 07/21/2024 9:00 A M EDT Height 167.6 cm (5' 5.98 ) 07/21/2024 9:00 AM ED T Body Mass Index 22.19 07/21/2024 9:00 AM EDT Plan of Treatment Upcoming Encounters Date Type Department Care Team (Late st Contact Info) Description 12/02/2024 11:30 AM EDT [facility] [address] [place] [phone] Dee Larsen MD [address] [place] [phone] Health Maintenance Due Date Last Done Comments DEPRESSION SCREENING 2001 INFLUENZA VACCINE (#1) 2024 11/30/2020, 2013 COVID-19 VACCINE ( season) 2024 04/18/2021, 07/09/2020, 06/18/2020 TSH LEVEL 10/21/2025 10/21/2024, 08/0 07/2024, 07/15/2024, Additional history exists PAP SMEAR 06/09/2027 06/08/2024, 01/24, 02/06/2017 Adult Td,Tdap Booster 06/26/2027 06/25/2017, 014 HEPATITIS C SCREENING Completed 02/10/2017 HIV ONE-TIME SCREENING (18-65 YEARS) Completed 01/01/2021 SMOKING STATUS SCREENING (Once After 26 Yrs) Completed 07/21/2024 HEPATITIS A VACCINES Aged Out No long er eligible based on patient's age to complete this topic HIB VACCINES Aged Out No longer eligi ble based on patient's age to complete this topic MENINGOCOCCAL VACCINES (ACWY) Aged Out No longer eligible based on patient's age to complete this topic MENINGOCOCCAL VACCINES (B) Aged Out N o longer eligible based on patient's age to complete this topic PNEUMOCOCCAL VACCINES (0-49 years) Aged Out No longer eligible based on patient's age to complete this topic Medical Devices Implanted Type Area Surface Room Shop Optician Device Identifier Shelf Expiration Date Model / Serial / Lot Iud Implanted: (Quantity not on file) Intrauterine Device Procedures Procedure Name Priority Date/Time Associated Diagnosis Comments IONIZED CALCIUM Routine 10/22/2024 9:12 AM EDT Myxedema heart disease Parathyroid disease FREE T4 Routine 10/21/2024 8:54 AM EDT Myxedema heart disease TSH Routine 10/21/2024 8:54 AM EDT Myxedema heart disease Parathyroid disease PARATHYROID HORMONE (PTH) Routine 10/21/2024 8:54 AM EDT Myxedema heart disease Parathyroid disease 25-OH VITAMIN D Routine 10/21/2024 8:54 AM EDT Myxedema heart disease Parathyroid disease US THYROID GLAND Routine 10/07/2024 1:21 PM EDT 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 Neck pain XR THORACIC SPINE 3 VIEW Routine 10/01/2024 9:16 AM EDT Upper back pain XR SHOULDER 2 VIEWS (RIGHT) Routine 10/01/2024 9:15 AM EDT Pain in shoulder region, right XR SHOULDER 2 VIEWS (LEFT) Routine 10/01/2024 9:14 AM EDT Pain in shoulder region, left XR CERVICAL SPINE 2-3 VIEWS Routine 10/01/2024 9:12 AM EDT Upper back pain TSH Routine 09/29/2024 12:05 PM EDT 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 Myalgia FREE T4 Routine 09/29/2024 12:05 PM EDT 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 Myalgia SEDIMENTATION RATE (ESR) Routine 09/29/2024 12:05 PM EDT 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 Myalgia C-REACTIVE PROTEIN Routine 09/29/2024 12 :05 PM EDT 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 Myalgia PAP TEST Routine 06/08/2024 12:00 AM EDT HEPATITIS C ANTIBODY, QUALITATIVE Routine 02/10/2017 3:45 PM EST Encounter for supervision of other normal in first trimester from Last 3 Months or Most Recently Relevant to Health Maintenance Results * Ionized calcium (10/22/2024 9:12 AM EDT) IONIZED CALCIUM 1.24 1.14 - 1.37 mmol/L [facility] Blood 10/22/2024 9:12 AM EDT 10/22/2024 9:18 AM EDT [facility] LAB BLOOD ORDERABLES Final Result Performing Organization Address City/[facility]/ZIP Co de Phone Number [address] [address] * 25-OH vitamin D (10/21/2024 8:54 AM EDT) 25 OH VIT D (TOTAL) 40 30 - 60 ng/mL [facility] Blood 10/21/2024 8:54 AM EDT 10/21/2024 9:03 AM EDT [facility] LAB BLOOD ORDERABLES Final Result Performing Organization Address [facility] Co de Phone Number [address] [address] * TSH (10/21/2024 8:54 AM EDT) Only the most recent of2 resultswithin the time period is included. TSH 1.07 0.27 - 4.20 uIU/mL [facility] Blood 10/21/2024 8:54 AM EDT 10/21/2024 9:03 AM EDT [facility] LAB BLOOD ORDERABLES Final Result Performing Organization Address [facility] Co de Phone Number [address] [address] * Free T4 (10/21/2024 8:54 AM EDT) Only the most recent of2 resultswithin the time period is included. FREE T4 1.7 0.9 - 1.7 ng/dL [facility] Blood 10/21/2024 8:54 AM EDT 10/21/2024 9:03 AM EDT [facility] LAB BLOOD ORDERABLES Final Result Performing Organization Address [facility]/ZIP Co de Phone Number [address] [address] * Parathyroid hormone (PTH) (10/21/2024 8:54 AM EDT) PARATHYROID HORMONE 40 15 - 65 pg/mL [facility] Blood 10/21/2024 8:54 AM EDT 10/21/2024 9:03 AM EDT us [place] Josette [facility] LAB BLOOD ORDERABLES Final Result [facility] [address] [place] [address] * US Thyroid Gland (10/07/2024 1:21 PM EDT) Anatomical Region Laterality Modality Neck, Head, Chest Ultrasound 10/07/2024 2:56 PM EDT Impressions 10/07/2024 3:00 PM EDT Similar subcentimeter left lower thyroid lobe nodule which does not meet criteria for biopsy or follow-up. Incompletely imaged although grossly unchanged nodule adjacent to the left lower thyroid lobe. This could represent a parathyroid lesion or prominent lymph node. Narrative 10/07/2024 3:00 PM EDT US THYROID GLAND Referring clinician's provided indication for this examination in Epic: Outside Radiology Order; hypothyroidism TECHNIQUE: Ultrasound of the thyroid. COMPARISON: 11/04/2023 FINDINGS: Right Thyroid: The right lobe measures 4.5 in sagittal dimension. Mildly heterogeneous with no discrete nodules. No right sided adenopathy is detected. Left Thyroid: The left lobe measures 4.0 cm in sagittal dimension. Nodule #: 1 Maximum size: 0.7 cm Position: Lower pole Composition: solid/almost completely solid (2 pts) Echogenicity: hypoechoic (2 pts) Shape: [id number] (0) Margins: smooth (0 pts) Echogenic Foci: No calcifications (0 pts) Additional Echogenic foci: None (0 pts) Total points: 4 Significant change is size (>/= 20% in two dimensions or increase in 2mm): No Change in Features: No No left sided adenopathy is detected. Adjacent to the left lower thyroid lobe is a 5 x 7 mm hypoechoic nodule, not significantly changed when compared to prior to the extent visualized, partially excluded by collimation. Procedure Note Marly Krause MD - 10/07/2024 US THYROID GLAND Referring clinician's provided indication for this examination in Epic:Outside Radiology Order; hypothyroidism TECHNIQUE: Ultrasound of the thyroid. COMPARISON: 11/04/2023 FINDINGS: Right Thyroid: The right lobe measures 4.5 in sagittal dimension. Mildly heterogeneous with no discrete nodules. No right sided adenopathy is detected. Left Thyroid: The left lobe measures 4.0 cm in sagittal dimension. Nodule #: 1 Maximum size: 0.7 cm Position: Lower pole Composition: solid/almost completely solid (2 pts) Echogenicity: hypoechoic (2 pts) Shape: [id number] (0) Margins: smooth (0 pts) Echogenic Foci: No calcifications (0 pts) Additional Echogenic foci: None (0 pts) Total points: 4 Significant change is size (>/= 20% in two dimensions or increase in 2mm):No Change in Features: No No left sided adenopathy is detected. Adjacent to the left lower thyroid lobe is a 5 x 7 mm hypoechoic nodule,not significantly changed when compared to prior to the extent visualized,partially excluded by collimation. IMPRESSION: Similar subcentimeter left lower thyroid lobe nodule which does not meetcriteria for biopsy or follow-up. Incompletely imaged although grossly unchanged nodule adjacent to the leftlower thyroid lobe. This could represent a parathyroid lesion or prominentlymph node. [facility] IM US THYROID Final Result * XR THORACIC SPINE 3 VIEW (10/01/2024 [...] degenerative change. IMPRESSION: No acute osseous abnormality. [facility] IMG XR SPINE Final Result * XR SHOULDER [...] degenerative change. IMPRESSION: No acute osseous abnormality. [facility] IMG XR UPPER EXTREMIT Y Final Result [...] degenerative change. IMPRESSION: No acute osseous abnormality. [facility] IMG XR UPPER EXTREMIT Y Final Result [...] clinician's provided indication for this examination in [facility]:Pain COMPARISON: FINDINGS: Normal cervical spine alignment. The open-mouth view reveals an intactdens and normal alignment of the C1 lateral masses on C2. No prevertebralsoft tissue swelling. Unremarkable lumbar spine alignment. No compression fracture orsignificant degenerative change. Both shoulders demonstrate normal alignment without evidence of fractureor significant degenerative change. IMPRESSION: No acute osseous abnormality. [facility] IMG XR SPINE Final Result * Sedimentation rate (ESR) (09/29/2024 12:05 PM EDT) ESR <1 0 - 20 mm/h [facility] Blood 09/29/2024 12:0 5 PM EDT 09/29/2024 12:07 PM EDT [facility] LAB BLOOD ORDERABLES Final Result Performing Organization Address [facility]/ZIP Co de Phone Number [address] [address] * C-Reactive Protein (09/29/2024 12:05 PM EDT) C REACTIVE PROTEIN <3.0 0.0 - 4.0 mg/L [facility] Blood 09/29/2024 12:0 5 PM EDT 09/29/2024 12:07 PM EDT [facility] LAB BLOOD ORDERABLES Final Result Performing Organization Address City/[facility]/ZIP Co de Phone Number [address] [address] * Pap Test (06/08/2024 12:00 AM EDT) 06/08/2024 06/09/2024 9:3 9 AM EDT Narrative SEE NARRATIVE - 06/14/2024 3:24 PM EDT [address] [address] Television Host: Demario Steve MD SURGICAL NURSE PRACTITIONER Cytology Report FINAL DIAGNOSIS A. PAP SMEAR (THIN PREP) CE: SPECIMEN ADEQUACY: Satisfactory for evaluation; transformation zone present. INTERPRETATION: NEGATIVE FOR INTRAEPITHELIAL LESION OR MALIGNANCY. This specimen was analyzed by the automated ThinPrep Imaging System ([employer].) and the selected romano were reviewed by a crib tender. Electronically Signed Out By: RAMA Cormier(ASCP) The Pap test is a screening test primarily for squamous cancers and precursors and has associated false-negative and false-positive results. New technologies such as liquid-based preparations may decrease but will not eliminate all false-negative results. Regular sampling and follow-up of unexplained clinical signs and symptoms are recommended to minimize false negative results. PROCEDURES/ADDENDA HPV Testing (Requested) Ordered Date: 06/09/2024 A. PAP SMEAR (THIN PREP) CE: High-risk HPV Panel w/ extended genotyping NEG HPV 16-NEG HPV 18-NEG HPV 45-NEG HPV 33/58-NEG HPV 31-NEG HPV 56/59/66-NEG HPV 51-NEG HPV 52-NEG HPV 35/39/68-NEG Performed by real-time polymerase chain reaction (PCR) at [address] using the FDA-approved [employer] Onclarity HPV Assay with extended genotyping. Uses of the assay in scenarios other than those approved by the FDA should be considered off-label use. The accuracy and precision of this test for all other off-label specimen sources has been verified in the Cytopathology Laboratory of the [facility] and has not been cleared or approved by the U.S. Food and Drug Administration. Clinical correlation is advised. The assay assesses the E6/E7 DNA target and utilizes human beta globin as an internal control. Cytology and HPV testing are screening assays and should not be used as the sole means of detecting cancer. False-positives and false-negatives can occur. CLINICAL HISTORY Date of Last Menstrual Period: 05-19-2024 Other Clinical Conditions: Screening Pap SPECIMEN SOURCE A: PAP SMEAR (THIN PREP) CE Patient Name: KENJI DANG : 1990 (Age: 33) Sex: F Institution: [facility] Location: [facility] Date of Collection: 06/08/2024 Date of Reported: 06/14/2024 15:24 Results to: Blanca Bautista us Blanca Lopez MD CYTOLOGY ORDER [place] Final Result SEE NARRATIVE * Hepatitis C antibody, qualitative (02/10/2017 3:45 PM EST) HCV Negative Negative [facility] Comment: This is a screening test and should be confirmed with molecular testing Blood 02/10/2017 3:45 PM EST 02/10/2017 3:53 PM EST us Amanda Krishnamurthy CNM LAB BLOOD ORDERABLES Final Resul t Performing Organization Address City/[facility]/ZIP Co de Phone Number [facility] [address] [place], [place] [id number] from Last 3 Months or Most Recently Relevant to Health Maintenance [place] [address] [place] [address] [employer] [facility] [address] [place] [address] [place] [address] [place] [address] [place] [address] [place] [address] [place] [address] [place] [address] [place] [address] [employer] [employer] [facility] [employer] [facility] [place] [address] Advance Directives For more information, please contact: [phone] (9AM - 5PM [facility], Friday-Friday) * Full Code (Presumed) (Latest Code Status on File) Date Activated Date Inactivated Comments 08/29/2017 2:58 PM 09/02/2017 3:03 PM * Full Code (Presumed) Date Activated Date Inactivated Comments 08/29/2017 1:05 PM 08/29/2017 2:58 PM * Full Code (Presumed) Date Activated Date Inactivated Comments 08/29/2017 8:39 AM 08/29/2017 1:05 PM * Full Code (Presumed) Date Activated Date Inactivated Comments 08/28/2017 6:36 PM 08/28/2017 11:04 PM Care Teams Weather Forcaster Relationship Specialty Start Date End Date Stephanie Herrera FNP [address] [place] [address] PCP - General Nurse Practitioner 11/09/24 Stephanie Herrera FNP [address] [place] [address] Nurse Practitioner 11/09/24 Jenny Emerson PA-C [address] [place] [email or web address] Physician Supervisor Of Operations Physician Supervisor Of Operations 07/14/24 Additional Source Comments The information contained in this document represents components of the legal health record. It is not the complete legal health record.[facility]
--- OUTSIDE RECORDS SUMMARY | 2024-11-18 20:01 | XMS_ITS | Encounter Summary ---
Author Organization [email or web address] Address [address] [place] [address] [address] [place] [address] Care Team Providers Care Set Up Mechanic [employer]il Winding Machines Name Role Phone [facility] Primary Care Provider [phone] Encounter Details Date Type Department Care Team (Latest Contact Info) Description 11/16/2020 Abstract [facility] CONVERSIONS Dental, Provider, DDS Social [...] Info) Description 11/19/2024 2:00 PM EDT Telemedicine [facility] [address] [place] [address] [facility] [address] [place] [address] 12/23/2024 10:20 AM EDT Office Visit [facility] [address] [place] [address] [facility] [address] [place] [address] documented as of this encounter Visit Diagnoses Not on filedocumented in this encounter Care Teams Set Up Mechanic Coil Winding Machines Relationship Specialty Start Date End Date [place], [place] [facility] [address] [place] [address] PCP - General Family Medicine 03/28/22 documented as of this encounter
--- OUTSIDE RECORDS SUMMARY | 2024-11-18 20:01 | XMS_ITS | Encounter Summary ---
Author Organization [facility] Address [address] [place] [address] Phone Care Team Providers Care Engine House Helper Name Role Phone Lyman, [place] Josette [facility] Primary Care Provide r [facility] Primary Care Provide r Lyman, [place] Josette [facility] Unavailable Jenny Emerson PA-C Unavailable Encounter Details Date Type Department Care Team (Latest Contact Info) Description 09/29/2024 Transcribe Orders Virtual Department [address] [place] [address] Lyman, [place] Josette [facility] [address] [facility] [place] [address] 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); Neck pain Social History Tobacco Use Types Packs/Day Years [...] [facility] [address] [place] [phone] Dee Larsen MD [address] [place] [phone] documented as of this encounter Results * US Thyroid Gland (10/07/2024 1:21 PM [...] clinician's provided indication for this examination in [facility]: Outside Radiology Order; hypothyroidism TECHNIQUE: Ultrasound of [...] (2 pts) Echogenicity: hypoechoic (2 pts) Shape: pydzy-[id number] (0) Margins: smooth (0 pts) Echogenic Foci: [...] clinician's provided indication for this examination in [facility]:Outside Radiology Order; hypothyroidism TECHNIQUE: Ultrasound of the [...] (2 pts) Echogenicity: hypoechoic (2 pts) Shape: [id number] (0) Margins: smooth (0 pts) Echogenic Foci: [...] represent a parathyroid lesion or prominentlymph node. [facility] THYROID Final Result documented in this encounter Visit Diagnoses Diagnosis 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- Primary Neck pain Cervicalgia 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 Neck pain Cervicalgia documented in this encounter Care Teams Engine House Helper Relationship Specialty Start Date End Date [facility] Stephanie GLORIA Finch [address] [place] [address] PCP - General Nurse Practitioner 09/29/24 11/08/24 [facility] Stephanie GLORIA Finch [address] [place] [phone] PCP - General Nurse Practitioner 11/09/24 [facility] Stephanie GLORIA Finch [address] [place] [phone] Nurse Practitioner 11/09/24 Jenny Emerson PA-C [address] [place] [phone] Physician Chair Physician Chair 07/14/24 documented as of this encounter Additional Source Comments The information contained in this document represents components of the legal health record. It is not the complete legal health record.[facility]
--- OUTSIDE RECORDS SUMMARY | 2024-11-18 20:01 | XMS_ITS | Clinical Summary ---
Author Organization [employer] Address [address] [facility] [address] [place] [address] Care Team Providers Care Electric Motor Analyst Name Role Phone Stephanie Herrera [facility] Primary Care Provider [phone] Allergies No known active allergies Medications * This document contains information received from the source organization and may not represent a complete record from that organization. triamcinolone (Kenalog) 0.1 % creamIndication s:Dermatitis Apply topically if needed each day for rash. Apply to affected area 1-2 times daily as needed. 45 g 05/28/19 25 Active Additional Information Patient not taking.Reported on 09/29/2024 DULoxetine (Cymbalta) [address] Warren ons:Myalgia,Dep ressive disorder Take 1 capsule (30 mg) by mouth Once per day. Do not crush or chew. 90 capsule 09/30/19 25 Active levothyroxine (Synthroid, Levoxyl) 75 MCG tabletIndicatio ns:Hypothyroidi sm due to Sabine's thyroiditis Take 1 tablet (75 mcg) by mouth See administration instructions. Take 1 tablet by mouth daily on Saturdays10/02/19 25 Active levothyroxine (Synthroid, Levoxyl) 88 MCG tabletIndicatio ns:Hypothyroidi sm due to Sabine's thyroiditis Take 1 tablet (88 mcg) by mouth See administration instructions. 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 Pt would like f/up labs and calcium checked, see thryoid u/'s report in chart. An enlarged parathyroid gland less likely than a reactive lymph node but given patient's request, concerns and no previous PTH results new lab orders entered for this and ionized calcium (pt has concerns about sounds she states are like bones popping ) no pain. Await results and recommend followup visit in person with PCP for hands on exam. Kenji agrees to plan and has no further questions nor concerns at visit conclusion. Other fatigue 02/05/2024 02/12/2024 Assessment & Plan (02/05/2024 9:40 PM EST): Kenji reports has improved some with the thyroid medication and therapist helping her with anxiety and what therapist thinks is PTSD from childhood/young adult years (see HPI) but fatigue is significant each morning before she takes her thyroid med then slowly improves. Would like followup labs and orders are entered. Kenji would like to get these done at the [facility] tomorrow or Friday next week at latest. Encouraged Kenji to stay in regular therapy and keep a symptoms diary if desires to discuss with her PCP at an in person followup once results in chart. Kenji agrees to this plan and has no further questions or concerns at visit conclusion. Chronic fatigue 10/24/2023 11/05/2023 Overview (10/24/2023): As well as globus sensation at times when drinking fluids, feels tenderness with self palpation of throat/thyroid gland area. Very possible this is thyroid related - will get thyroid u/s and encouraged Kenji to get the followup labs drawn next week that her PCP ordered. Already has cutter machine visit scheduled but it isn't until January - june need sooner pending results of f/up labs and thyroid u/s. Moodiness 10/24/2023 11/05/2023 Assessment & Plan (10/24/2023 7:18 PM EDT): See HPI, agrees with and would like to speak with therapist. Referral order entered, pt will call health center to f/up on getting this appointment as well as make sure to get her followup labs drawn this next week that PCP ordered - needs current results for PCP f/up visit in October. Abnormal thyroid exam 10/24/20232023 Assessment & Plan (10/24/2023 7:20 PM EDT): Patient reports globus sensation at times as well as some tenderness when she self palpates area of throat over thyroid. Await f/up lab results and thyroid u/s ordered, encouraged to complete this before next PCP visit in October. Acquired hypothyroidism 09/22/202302/26 Assessment & Plan (10/24/2023 7:21 PM EDT): Suspect is still hypothyroid based on reported symptoms - await current labs and thyroid u/s results. 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 MEDICAL [address] [place] [address] [facility] Stephanie, [facility] Malaise and fatigue (Primary Dx); Myalgia; Depressive disorder; Bilateral shoulder pain, unspecified chronicity; Upper back pain; 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; Rash and nonspecific skin eruption; Neutropenia, unspecified type ([facility]/H[facility]) 09/24/2024 Telephone [facility] MEDICAL [address] [place] [address] [facility] DOCUMENTUM CONSULTANT Depression; Body Pain; Pain 09/23/2024 2:00 PM EDT Office Visit [facility] Dental [address] [place] [address] José Luis García DDS from Last 3 Months Immunizations Immunization Administration Dates Next Due Influenza injectable quadriv alent IIV4 with preservative 11/30/2020 Influenza, IIV3, injectable 12/02/2013 PPD Test 11/26/2016 Pfizer Covid-19 Vaccine 12+ 07/09/2020, Tdap 06/25/2017,12/02/2013 Family History Medical History Relation Name Comments Cancer Maternal Grandfather Diabetes Mother Relation Name Status Comments Maternal Grandfather Mother Social History Tobacco Use Types Packs/Day Years Used Date Smoking Tobacco: Never Smokeless Tobacco: Never Tobacco Cessation:Counseling Given: Not Answered Alcohol Use Standard Drinks/Week Comments Yes 1 (1 standard drink = 0.6 oz pure alcohol) few glasses of wine on the weekend Depression Answer Date Recorded Patient Health Questionnaire-9 Score 12 09/29/2024 Patient Health Questionnaire-9 Score 12 09/29/2024 Last PHQ-9: Questionnaire Data Not on file 0 09/29/2024 Housing Stability Answer Date Recorded What is [...] Answer Date Recorded Patient Health Questionnaire-2 Score 4 09/29/2024 Internet Access Answer Date Recorded Internet Access Q1 Yes 11/27/2023 Internet Access Q2 Not on file 11/27/2023 Comments No Sex and Gender Information Value Date Recorded Sex Assigned at Female 04/03/2022 10:00 AM EST Legal Sex Female 5:35 PM EDT Gender Identity Female 04/03/2022 10:00 AM EST Sexual Orientation Straight 04/03/2022 10 :05 AM EST 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 on file Not on file Not on file Last Filed Vital Signs Vital Sign Reading Time Taken Comments Blood Pressure 103/68 09/29/2024 11:05 AM EDT Pulse 78 09/29/2024 11:05 AM EDT Temperature 37.1 C (98.7 F) 09/29/2024 11:05 AM EDT Respiratory Rate 18 10/17/2023 9:09 AM EDT Oxygen Saturation 99% 05/27/2024 9:29 AM EDT Inhaled Oxygen Concentration - - Weight 61.7 kg (136 lb) 05/27/2024 9:29 AM EDT Height 167.6 cm (5' 6 ) 05/27/2024 9:29 AM EDT Body Mass Index 21.95 05/27/2024 9:29 AM EDT Plan of Treatment Upcoming Encounters Date Type Department Care Team (Late st Contact Info) Description 11/19/2024 2:[address] [facility] MEDICAL [address] [place] [address] [facility] [address] [place] [address] 12/23/2024 10:20 AM EDT Office Visit [facility] MEDICAL [address] [place] [address] IsaacStephanie johnson, DOCUMENTUM CONSULTANT [address] [place] [address] Health Maintenance Due Date Last Done Comments Disability Screening 1989 Alcohol/Substance Use Screening 2001 Family Planning (PISQ) 2004 HPV Vaccines (1 - 3-dose series) 2004 Hepatitis C Screening 11/15/2007 Hepatitis B Vaccines (1 of 3 - 19+ 3-dose series) 2008 COVID-19 Vaccine ( season) 2024 04/18/2021, 07/09/2020, 06/18/2020 Influenza Vaccine (#1) 2024 11/30/2020, 2013 SDOH Screening 11/26/2024 11/27/2023 Dental Oral Exam 02/09/2025 08/09/2024, , 05/14/2022, Additional history exists Dental Prophylaxis 02/09/2025 08/09/2024, 0 03/25/2024, 05/14/2022, Additional history exists Dental X-Ray: Bitewings 03/26/2025 03/25/19 25, 05/14/2022, 11/16/2020, Additional history exists Depression Monitoring 04/01/2025 09/29/2024, 025 Dental X-Ray: Full Mouth 05/15/2025 05/14/2022, 04/25 Tobacco Screening 10/01/2025 10/01/2024 Cervical Cancer Screening 04/03/2027 HPV/Cotest 04/03/2027 04/03/2022 Pap Smear 04/03/2027 04/03/2022 DTaP/Tdap/Td Vaccines (3 - Td or Tdap) 06/26/2027 06/25/2017, 12/02/2013 Zoster Vaccines (1 of 2) 11/15/2039 RSV Patients and Patients Aged 60 years or older (1 - 1-dose 75+ series) 2064 HIV Screening Completed 01/01/2021, 01/01/2021 HIB Vaccines Aged Out No longer eligi ble based on patient's age to complete this topic Hepatitis A Vaccines Aged Out No long er eligible based on patient's age to complete this topic IPV Vaccines Aged Out No longer eligi ble based on patient's age to complete this topic Meningococcal B Vaccine Aged Out No l onger eligible based on patient's age to complete this topic Meningococcal Vaccine Aged Out No dory radha eligible based on patient's age to complete this topic Pneumococcal Vaccine: Pediatrics (0 to 5 Years) and At-Risk Patients (6 to 49) Years Aged Out No longer eligible based on patient's age to complete this topic RSV under 20 months Aged Out No longe r eligible based on patient's age to complete this topic Rotavirus Vaccines Aged Out No longer eligible based on patient's age to complete this topic Procedures Procedure Name Priority Date/Time Associated Diagnosis Comments CALCIUM, IONIZED Routine 10/22/2024 Parathyroid disorder ([facility]) VITAMIN D 25 HYDROXY Routine 10/21/2024 Parathyroid disorder ([facility]) PTH, INTACT WITHOUT CALCIUM Routine 10/21/2024 Parathyroid disorder ([facility]) T4, FREE Routine 10/21/2024 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 TSH Routine 10/21/2024 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 THYROID Routine 10/07/2024 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 XR CERVICAL SPINE 2-3 VIEWS Routine 10/01/2024 Upper back pain XR THORACIC SPINE 3 VIEWS Routine 10/01/2024 Upper back pain XR SHOULDER 2+ VIEWS BILATERAL Routine 10/01/2024 Bilateral shoulder pain, unspecified chronicity TSH Routine 09/29/2024 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 C-REACTIVE PROTEIN Routine 09/29/2024 Myalgia SED RATE BY MODIFIED WESTERGREN Routine 09/29/2024 Myalgia T4, FREE Routine 09/29/2024 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 20 INTRAORAL - PERIAPICAL FIRST RADIOGRAPHIC IMAGE Routine 09/23/2024 2:00 PM EDT 20 LIMITED ORAL EVALUATION - PROBLEM FOCUSED Routine 09/23/2024 2:00 PM EDT Full PROPHYLAXIS - ADULT Routine 08/09/2024 4:00 PM EDT PERIODIC ORAL EVALUATION - ESTABLISHED PATIENT Routine 08/09/2024 4:00 PM EDT BITEWINGS - 4 RADIOGRAPHIC IMAGES Routine 03/25/2024 10:30 AM EST INTRAORAL - COMPLETE SERIES OF RADIOGRAPHIC IMAGES Routine 05/14/2022 2:00 PM EDT Encounter for dental examination PAP, LB WITH CT/GC AND HPV Routine 04/03/2022 10:37 AM EST HIV 1/2 ANTIGEN/ANTIBODY, FOURTH GENERATION W/RFL Routine 01/01/2021 9:31 AM EST from Last 3 Months or Most Recently Relevant to Health Maintenance Results * Calcium, Ionized (10/22/2024) Blood Venous blood specimen / Unknown [facility] LAB BLOOD ORDERABLES Isha l Result Performing Organization Address [facility] de Phone Number EXTERNAL LAB * Vitamin D, 25-Hydroxy (10/21/2024) Blood Venous blood specimen / Unknown [facility] LAB BLOOD ORDERABLES Isha l Result Performing Organization Address City/[facility] Co de Phone Number EXTERNAL LAB * TSH (10/21/2024) Only the most recent of2 resultswithin the time period is included. Blood Venous blood specimen / Unknown [facility] LAB BLOOD ORDERABLES Isha l Result Performing Organization Address City/[facility] Co de Phone Number EXTERNAL LAB * T4, Free (10/21/2024) Only the most recent of2 resultswithin the time period is included. Blood Venous blood specimen / Unknown Result [facility] LAB BLOOD ORDERABLES Isha l Result Performing Organization Address [facility] Co de Phone Number EXTERNAL LAB * PTH, Intact Without Calcium (10/21/2024) Blood Venous blood specimen / Unknown [facility] LAB BLOOD ORDERABLES Isha l Result Performing Organization Address [facility] de Phone Number EXTERNAL LAB * US Thyroid (10/07/2024) Anatomical Region Laterality Modality Head, Neck Ultrasound [facility] IMG US PROCEDURES Final R esult * XR Shoulder 2+ Views Bilateral (10/01/2024) Anatomical Region Laterality Modality Upper Extremities, Shoulder Bilateral Radi ographic Imaging [facility] IMG XR PROCEDURES Final R esult * XR Thoracic Spine 3 Views (10/01/2024) Anatomical Region Laterality Modality Spine, T-spine Radiographic Francie ging Result [facility] IMG XR PROCEDURES Final R esult * XR Cervical Spine 2-3 Views (10/01/2024) Anatomical Region Laterality Modality Spine, C-spine Radiographic Francie ging [facility] IMG XR PROCEDURES Final R esult * Sed Rate by Modified Israelergren (09/29/2024) Blood Venous blood specimen / Unknown Result [facility] LAB BLOOD ORDERABLES Isha l Result Performing Organization Address [facility] Co de Phone Number EXTERNAL LAB * C-reactive Protein (09/29/2024) Blood Venous blood specimen / Unknown Result [facility] LAB BLOOD ORDERABLES Isha l Result EXTERNAL LAB * PAP, LB with CT/GC and HPV (04/03/2022 10:37 AM EST) PAP, LB WITH CT/GC AND HPV Patient Name: KENJI CARTER [facility] Comment: Patient : 1990 (Age: 31) Lab Collection Date: 04/03/2022 Accession Date: 04/04/2022 Sign Out Date: 04/09/2022 Tissue Source: 1: THINPREP MINE UTILITY OPERATOR PAP TEST, CERVICAL: Final Diagnosis: NEGATIVE FOR INTRAEPITHELIAL LESION OR MALIGNANCY. Satisfactory for evaluation. Endocervical/transformation zone present. Procedures/Addenda: Human Papilloma Virus, High-Risk (Any Dx) Status: Signed Out Interpretation: Negative Methodology: Inaaya Aptima HPV mRNA assay (Nucleic Acid Amplification Test, NAAT). Clinical History: Date of Last Menstrual Period: 03/11/22 Menstrual History: not available Contraceptive History: not available Ancillary Testing: HPV (any dx) Chlamydia/GC Case imaged by the IFMR [employer] Imaging System with manual rescreening or review. Performed at [facility] Laboratory department of Cytology, Mya Vizcaino [place] Clinical History (other): V76.2, Z01.419, routine screening Phone #: [phone], On-Call Pathologist: [id number] Testing performed or reported by [facility], a Service of [facility], [address] [place] [address] Mukul Barry MD, Psychiatric Clinician IA# [id number] 04/03/2022 10:3 7 AM EST 04/04/2022 6:13 PM EST [facility] LAB CYTOLOGY ORDERABLES F inal Result Performing Organization Address City/[facility]/ZIP Co de Phone Number [facility] [address] [place] [address] * HIV-1/2 antigen/antibody (01/01/2021 9:31 AM EST) HIV-1/2 ANTIGEN/ANTIBO DY NON-REACTI VE NON-REACTI VE [facility] 01/01/2021 9:31 AM EST [facility] LAB BLOOD ORDERABLES Isha l Result [facility] [address] from Last 3 Months or Most Recently Relevant to Health Maintenance Insurance [facility] C3 DENTAL-[facility] MEDICAID STAND ADULT DENTAL - N FULL (MEDICAID) [employer] [place] Care Teams Electric Motor Analyst Relationship Specialty Start Date End Date Stephanie Herrera FNP [address] [facility] RAHEL AG02 PCP - General Family Medicine 03/28/22
--- OUTSIDE RECORDS SUMMARY | 2024-11-18 20:01 | XMS_ITS | Encounter Summary ---
Author Organization [facility] Address [address] [facility] [address] [place] [address] Phone Care Team Providers Care Desk Sergeant Name Role Phone Edinson Miles MD Primary Care Provider Pcp, Unknown Primary Care Provider Unavailabl e [facility] Primary Care Provide r [facility] Primary Care Provide r [facility] Primary Care Provide r [facility] Primary Care Provide r [facility] Unavailable Jenny Emerson PA-C Unavailable Encounter Details Date Type Department Care Team (Late st Contact Info) Description 04/02/2017 Ancillary Orders [facility] [address] [place] [address] [place] [address] Kinsey Bell, CLARE [address] [facility], [address] [place] [address] Encounter for supervision of other normal in second trimester Social History Tobacco Use Types Packs/Day Years [...] [facility] [address] [place] [phone] Dee Larsen MD [address] [place] [address] [address] [place] [address] documented as of this encounter Results * US OB GREATER THAN OR EQUAL TO 14 WEEKS ANATOMICAL DETAILED SURVEY (04/02/2017 4:02 PM EST) Anatomical Region Laterality Modality Abdomen, Pelvis, Uterus/Adnexa O B Ultrasound 04/02/2017 4:04 PM EST Impressions 04/02/2017 10:20 PM EST 1. Single live IUP with above dating criteria. 2. Visualized anatomy appears normal. Narrative 04/02/2017 10:20 PM EST INDICATION: survey DATING: Exam Date: 04/02/2017 4:04 PM Last Menstrual Period: 11/18/2016 Ultrasound Age: (20)w(00)d Gestational Age by LMP: (19)w(02)d Estimated Delivery by Ultrasound Age: August 20, 2017 Estimated Delivery Date: 08/25/2017 ANATOMY SCAN: Biparietal Diameter: 4.58 cm (19)w(06)d 74% Hadlock Head Circumference: 16.80 cm (19)w(04)d 51% Hadlock Abdominal Circumference: 14.05 cm (19)w(04)d 50% Hadlock Femur Length: 3.48 cm (21)w(00)d 92% Hadlock Lateral Ventricle: 0.65 cm Cerebellum: 1.93 cm (19)w(06)d 49% Chitty Cisterna Magna: 0.62 cm Humerus: 3.04 cm (20)w(01)d 73% Gia Nuchal Fold: 0.42 mm HC/AC Ratio: 1.2 FL/BPD Ratio: 76% FL/AC Ratio: 25 % Estimated Weight: 12 oz 330 grams 76% Hadlock Heart Activity: Present Heart Rate: 140 bpm Presentation: Vertex Amniotic Fluid: Normal Placenta: Posterior Placental Grade: 1 Cord: 3 Vessel Cord Cervical Length: 3.38 cm. ANATOMY: Cerebellum: Seen Cisterna Magna: Seen Cavum Septum Pellucidum: Seen Lateral Ventricle: Ductal Arch: Seen limited Face: Seen Orbits/Lenses: Seen Profile: Seen Nose/Lips: Seen Spine: Seen Stomach: Seen Cord Insertion: Seen Diaphragm: Seen Placental Cord Insertion: Seen Bladder: Seen Kidneys: Seen LVOT: Seen 4 Chamber Heart: Seen Aortic Arch: Seen RVOT: Seen Lower Extremities: Seen Upper Extremities: Seen Gender: Female TECH COMMENTS: Single active Vertex fetus. Growth is at the 76%. The anatomy is unremarkable. The ductal arch view was limited by poor position The cervix is long and closed. The fetus was active throughout study Transabdominal scanning was performed. Procedure Note Mauri Samson MD - 04/02/2017 INDICATION: survey DATING: Exam Date: 04/02/2017 4:04 PM Last Menstrual Period: 11/18/2016 Ultrasound Age: (20)w(00)d Gestational Age by LMP: (19)w(02)d Estimated Delivery by Ultrasound Age: August 20, 2017 Estimated Delivery Date: 08/25/2017 ANATOMY SCAN: Biparietal Diameter: 4.58 cm (19)w(06)d 74% Hadlock Head Circumference: 16.80 cm (19)w(04)d 51% Hadlock Abdominal Circumference: 14.05 cm (19)w(04)d 50% Hadlock Femur Length: 3.48 cm (21)w(00)d 92% Hadlock Lateral Ventricle: 0.65 cm Cerebellum: 1.93 cm (19)w(06)d 49% Chitty Cisterna Magna: 0.62 cm Humerus: 3.04 cm (20)w(01)d 73% Gia Nuchal Fold: 0.42 mm HC/AC Ratio: 1.2 FL/BPD Ratio: 76% FL/AC Ratio: 25 % Estimated Weight: 12 oz 330 grams 76% Hadlock Heart Activity: Present Heart Rate: 140 bpm Presentation: Vertex Amniotic Fluid: Normal Placenta: Posterior Placental Grade: 1 Cord: 3 Vessel Cord Cervical Length: 3.38 cm. ANATOMY: Cerebellum: Seen Cisterna Magna: Seen Cavum Septum Pellucidum: Seen Lateral Ventricle: Ductal Arch: Seen limited Face: Seen Orbits/Lenses: Seen Profile: Seen Nose/Lips: Seen Spine: Seen Stomach: Seen Cord Insertion: Seen Diaphragm: Seen Placental Cord Insertion: Seen Bladder: Seen Kidneys: Seen LVOT: Seen 4 Chamber Heart: Seen Aortic Arch: Seen RVOT: Seen Lower Extremities: Seen Upper Extremities: Seen Gender: Female TECH COMMENTS: Single active Vertex fetus. Growth is at the 76%. The anatomy is unremarkable. The ductal arch view was limited bypoor position The cervix is long and closed. The fetus was active throughout study Transabdominal scanning was performed. IMPRESSION: 1. Single live IUP with above dating criteria. 2. Visualized anatomy appears normal. Kinsey Bell [facility] Final Result documented in this encounter Visit Diagnoses Diagnosis Encounter for supervision of other normal in second trimester Encounter for supervision of other normal in second trimester documented in this encounter Care Teams Desk Sergeant Relationship Specialty Start Date End Date Edinson Miles MD [address] [place] [address], [address] [place] [address] PCP - General Internal Medicine 01/24/17 11/29/18 Pcp, Unknown PCP - General 11/30/18 05/16/22 Stephanie Herrera FNP PCP - General Nurse Practitioner 05/17/22 10/29/23 Stephanie Herrera FNP PCP - General Nurse Practitioner 10/30/23 09/28/24 Stephanie Herrera FNP [address] [place] [address] PCP - General Nurse Practitioner 09/29/24 11/08/24 Stephanie Herrera FNP [address] [place] [address] PCP - General Nurse Practitioner 11/09/24 [facility] [address] [place] [address] Nurse Practitioner 11/09/24 Jenny Emerson PA-C [address] [place] [address] Physician Porcelain Enamel Laborer Physician Porcelain Enamel Laborer 07/14/24 documented as of this encounter Additional Source Comments The information contained in this document represents components of the legal health record. It is not the complete legal health record.[facility]
--- OUTSIDE RECORDS SUMMARY | 2024-11-18 20:01 | XMS_ITS | Encounter Summary ---
Author Organization [facility] Address [address] [facility] [address] [place] [address] Phone Care Team Providers Care Airport Representative Name Role Phone [facility] Primary Care Provide r [facility] Primary Care Provide r [facility] Primary Care Provide r [facility] Unavailable [phone] Jenny Emerson PA-C Unavailable [phone] Encounter Details Date Type Department Care Team (Late st Contact Info) Description 07/01/2024 Hospital Encounter OR Admitting Dept - Virtual Department [address] [place] [address] Blanca Lopez MD [address] [facility], [address] [place] [address] [email or web address] Social History Tobacco Use Types Packs/Day Years [...] Office Visit [facility] [address] [place] [phone] Dee Larsen MD [address] [place] [address] [address] [place] [address] documented as of this encounter Visit Diagnoses Not on filedocumented in this encounter Care Teams Airport Representative Relationship Specialty Start Date End Date Stephanie Herrera FNP PCP - General Nurse Practitioner 10/30/23 09/28/24 Stephanie Herrera FNP [address] [place] [address] PCP - General Nurse Practitioner 09/29/24 11/08/24 Stephanei Herrera FNP [address] [place] [address] PCP - General Nurse Practitioner 11/09/24 Stephanie Herrera FNP [address] [place] [address] Nurse Practitioner 11/09/24 Jenny Emerson PA-C [address] [place] [address] [email or web address] Physician Rn Gastroenterology Physician Rn Gastroenterology 07/14/24 documented as of this encounter Additional Source Comments The information contained in this document represents components of the legal health record. It is not the complete legal health record.[facility]
--- OUTSIDE RECORDS SUMMARY | 2024-11-18 20:01 | XMS_ITS | Encounter Summary ---
Author Organization [employer] Address [address] [place] [address] 7 [place] [address] Care Team Providers Care Pmo Manager Name Role Phone [facility] Primary Care Provider [phone] Encounter Details Date Type Department Care Team (Latest Contact Info) Description 04/26/2020 Abstract [facility] CONVERSIONS Dental, Provider, DDS Social [...] 2:00 PM EDT Telemedicine [facility] [address] [place] [address] [facility] [address] [place] [address] 12/23/2024 10:20 AM EDT Office Visit [facility] [address] [place] [address] [facility] [address] [place] [address] documented as of this encounter Visit Diagnoses Not on filedocumented in this encounter Care Teams Pmo Manager Relationship Specialty Start Date End Date [place], [place] [facility] [address] [place] [address] PCP - General Family Medicine 03/28/22 documented as of this encounter
--- OUTSIDE RECORDS SUMMARY | 2024-11-18 20:01 | XMS_ITS | Encounter Summary ---
Author Organization [facility] Address [address] [place] [address] 7 [place] [address] Care Team Providers Care Prep Person Name Role Phone [facility] Primary Care Provider [phone] Reason for Visit * Reason Comments Med Refill Encounter Details Date Type Department Care Team (Late st Contact Info) Description 11/17/2022 Refill [place] [facility] [address] [place] [address] [facility] [address] [place] [address] Rash and nonspecific skin eruption Social History Tobacco Use Types Packs/Day Years [...] 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 [facility] [place] [address] [facility] [address] [place] [address] 12/23/2024 10:20 AM EDT Office Visit [place] [facility] [address] [place] [address] Stephanie Herrera FNP [address] [place] [place] [address] documented as of this encounter Visit Diagnoses Diagnosis Rash and nonspecific skin eruption Rash and other nonspecific skin eruption documented in this encounter Care Teams Prep Person Relationship Specialty Start Date End Date Stephanie Herrera FNP [address] [place] [address] PCP - General Family Medicine 03/28/22 documented as of this encounter
--- OUTSIDE RECORDS SUMMARY | 2024-11-18 20:02 | XMS_ITS | Encounter Summary ---
Author Organization [facility] Address [address] [place] [address] Phone Care Team Providers Care Risk Management Intern Name Role Phone [facility] Primary Care Provide r [facility] Primary Care Provide r [facility] Primary Care Provide r [facility] Primary Care Provide r [facility] Unavailable Jenyn Emerson PA-C Unavailable Encounter Details Date Type Department Care Team (Latest Contact Info) Description 10/28/2023 Ancillary Orders Virtual Department [address] [place] [address] Denisse Yates NP [address] [place] [address] Acquired hypothyroidism (Primary Dx); Chronic fatigue; Abnormal thyroid exam Social History Tobacco Use Types Packs/Day Years [...] Upcoming Encounters Date Type Department Care Team ([facility] st Contact Info) Description 12/02/2024 11:30 AM EDT Office Visit [facility] [address] [place] [phone] Dee Larsen MD [address] [place] [address] documented as of this encounter Results * US Thyroid Gland (11/04/2023 3:05 PM EDT) Anatomical Region Laterality Modality Neck, Head, Chest Ultrasound 11/04/2023 3:57 PM EDT Impressions 11/04/2023 4:10 PM EDT 1. Mildly heterogeneous and hypervascular thyroid gland suggestive of thyroiditis. 2. Subcentimeter left-sided TR4 nodule. 3. Prominent rounded hypoechoic nodule adjacent to the left lower pole measuring up to 8 mm, likely a lymph node which may be reactive. An enlarged parathyroid gland is felt to be less likely. ACR TI-RADS risk category: TR4 (4-6 points) ACR TI-RADS recommendation: No follow-up indicated. ACR TI-RADS recommendations TR5 (>/= 7 points) - FNA if >/= 1cm, follow-up if 0.5 - 0.9 cm every year for 5 years TR4 (4-6 points) - FNA if >/= 1.5cm, follow-up if 1 - 1.4 cm in 1, 2, 3 and 5 years TR3 (3 points)- FNA if >/= 2.5cm, follow-up if 1.5 - 2.4 cm in 1, 3 and 5 years TR2 (2 points) & TR1 (0 points) - No FNA and no follow-up indicated These guidelines for management of thyroid nodules are based on the ACR Thyroid Ultrasound Reporting Lexicon, April 2016: https://doi.org/10.1016.j.jacr.2017.01.046 Narrative 11/04/2023 4:10 PM EDT US THYROID GLAND Referring clinician's provided indication for this examination in Epic: Outside Radiology Order; hypothyroidism TECHNIQUE: Ultrasound of the thyroid. COMPARISON: None. FINDINGS: Total number of nodules >/= 1 cm: 0 Number of spongiform nodules >/= 2 cm not described below (TR1): 0 Number of mixed cystic and solid nodules >/= 1.5 cm not described below (TR2): 0 Background echogenicity: The gland is mildly heterogeneous. Vascularity: There is diffusely increased vascularity to the gland. RIGHT LOBE: 4.6 x 0.8 x 1.5 cm. No suspicious nodules are identified. LEFT LOBE: 4.3 x 0.8 x 1.6 cm. Nodule #: 1 Maximum size: 7 mm Position: Lower gland Composition: Solid/almost completely solid (2 pts) Echogenicity: Isoechoic (1 pt) Shape: [id number] (0) Margins: Smooth (0 pts) Echogenic Foci: Peripheral calcifications (2 pts) Additional Echogenic foci: None (0 pts) Significant change is size (>/= 20% in two dimensions or increase in 2mm): N/A Change in Features: N/A ACR TI-RADS total points: 5 ACR TI-RADS risk category: TR4 (4-6 points) ACR TI-RADS recommendation: No follow-up indicated ISTHMUS: 0.2 cm. No suspicious nodules are identified. Inferior and separate to the left gland there is a rounded hypoechoic nodule measuring 8 x 5 x 6 mm which demonstrates an apparent echogenic hilum with feeding vessel, likely a lymph node and less likely an enlarged parathyroid gland. Procedure Note Wero Dennison MD - 11/04/2023 US THYROID GLAND Referring clinician's provided indication for this examination in Epic:Outside Radiology Order; hypothyroidism TECHNIQUE: Ultrasound of the thyroid. COMPARISON: None. FINDINGS: Total number of nodules >/= 1 cm: 0 Number of spongiform nodules >/= 2 cm not described below (TR1): 0 Number of mixed cystic and solid nodules >/= 1.5 cm not described below(TR2): 0 Background echogenicity: The gland is mildly heterogeneous. Vascularity: There is diffusely increased vascularity to the gland. RIGHT LOBE: 4.6 x 0.8 x 1.5 cm. No suspicious nodules are identified. LEFT LOBE: 4.3 x 0.8 x 1.6 cm. Nodule #: 1 Maximum size: 7 mm Position: Lower gland Composition: Solid/almost completely solid (2 pts) Echogenicity: Isoechoic (1 pt) Shape: Yzgjf-[id number]-wlon (0) Margins: Smooth (0 pts) Echogenic Foci: Peripheral calcifications (2 pts) Additional Echogenic foci: None (0 pts) Significant change is size (>/= 20% in two dimensions or increase in 2mm):N/A Change in Features: N/A ACR TI-RADS total points: 5 ACR TI-RADS risk category: TR4 (4-6 points) ACR TI-RADS recommendation: No follow-up indicated ISTHMUS: 0.2 cm. No suspicious nodules are identified. Inferior and separate to the left gland there is a rounded hypoechoicnodule measuring 8 x 5 x 6 mm which demonstrates an apparent echogenichilum with feeding vessel, likely a lymph node and less likely an enlargedparathyroid gland. IMPRESSION: 1. Mildly heterogeneous and hypervascular thyroid gland suggestive ofthyroiditis. 2. Subcentimeter left-sided TR4 nodule. 3. Prominent rounded hypoechoic nodule adjacent to the left lower polemeasuring up to 8 mm, likely a lymph node which may be reactive. Anenlarged parathyroid gland is felt to be less likely. ACR TI-RADS risk category: TR4 (4-6 points) ACR TI-RADS recommendation: No follow-up indicated. ACR TI-RADS recommendations TR5 (>/= 7 points) - FNA if >/= 1cm, follow-up if 0.5 - 0.9 cm every yearfor 5 years TR4 (4-6 points) - FNA if >/= 1.5cm, follow-up if 1 - 1.4 cm in 1, 2, 3and 5 years TR3 (3 points)- FNA if >/= 2.5cm, follow-up if 1.5 - 2.4 cm in 1, 3 and 5years TR2 (2 points) & TR1 (0 points) - No FNA and no follow-up indicated These guidelines for management of thyroid nodules are based on the ACRThyroid Ultrasound Reporting Lexicon, April 2016: https://doi.org/10.1016.j.jacr.2017.01.046 us Denisse Linda Yates DIRECTOR UNDERWRITER SALES IMG US THYROID Final Re sult documented in this encounter Visit Diagnoses Diagnosis Acquired hypothyroidism- Primary Unspecified hypothyroidism Chronic fatigue Other malaise and fatigue Abnormal thyroid exam Acquired hypothyroidism Unspecified hypothyroidism Chronic fatigue Other malaise and fatigue Abnormal thyroid exam documented in this encounter Care Teams Risk Management Intern Relationship Specialty Start Date End Date Stephanie Herrera FNP PCP - General Nurse Practitioner 05/17/22 10/29/23 Stephanie Herrera FNP PCP - General Nurse Practitioner 10/30/23 09/28/24 Stephanie Herrera FNP [address] [place] [address] PCP - General Nurse Practitioner 09/29/24 11/08/24 Stephanie Herrera FNP [address] [place] [address] PCP - General Nurse Practitioner 11/09/24 Stephanie Herrera FNP [address] [place] [address] Nurse Practitioner 11/09/24 Jenny Emerson PA-C [address] [place] [address] Physician Student Development Advisor Physician Student Development Advisor 07/14/24 documented as of this encounter Additional Source Comments The information contained in this document represents components of the legal health record. It is not the complete legal health record.[facility]
--- OUTSIDE RECORDS SUMMARY | 2024-11-18 20:02 | XMS_ITS | Encounter Summary ---
Author Organization [facility] Address [address] [employer] [facility] [address] [place] [address] Phone Care Team Providers Care Policy And Planning Manager Name Role Phone Pcp, Unknown Primary Care Provider Unavailabl e [facility] Josette [facility] Primary Care Provide r [place], [place] Josette [facility] Primary Care Provide r [facility] Primary Care Provide r [facility] Primary Care Provide r [facility] Unavailable Jenny Emerson PA-C Unavailable Encounter Details Date Type Department Care Team (Late st Contact Info) Description 04/22/2022 Transcribe Orders Virtual Department [address] [place] [address] [facility] [address] [place] [address] Adnexal pain (Primary Dx) Social History Tobacco Use Types Packs/Day Years Used Date Smoking Tobacco: Never Smokeless Tobacco: Never Alcohol Use Standard Drinks/Week Comments No 0 (1 standard drink = 0.6 oz pur e alcohol) Comments Unknown Sex and Gender Information Value [...] [facility] [address] [place] [phone] Dee Larsen MD [address] [place] [address] documented as of this encounter Results * US PELVIS TRANSABDOMINAL PLUS TRANSVAGINAL (05/17/2022 1:21 PM EDT) Anatomical Region Laterality Modality Pelvis, Uterus/Adnexa Ultrasound 05/17/2022 4:33 PM EDT Impressions 05/17/2022 4:45 PM EDT 1. Low-lying intrauterine device at the lower uterine segment. Repositioning and alternative contraception recommended. 2. Normal sonographic appearance of the bilateral ovaries. Findings discussed by Joanna Clarke MD with ANI Dyson in [facility]'s office on 05/17/2022 at 4:45 PM. Narrative 05/17/2022 4:45 PM EDT US PELVIS TRANSABDOMINAL PLUS TRANSVAGINAL History: Low pelvic pain TECHNIQUE: Pelvic Ultrasound Transabdominal performed for global imaging of the pelvis. Pelvic Ultrasound Transvaginal performed for detailed imaging of the endometrium and/or adnexa. COMPARISON: Pelvic sonography 09/10/2019 FINDINGS: Uterus: Size: 8.7 x 4.1 x 5.2 cm. Orientation: anteverted Myometrium: Normal. Endometrium: The intrauterine device is a low-lying, at the lower uterine segment Thickness: 4 mm. Right adnexa: Ovary: Normal. The right ovary measures 3.6 x 2.0 x 3.0 cm. Normal color and spectral Doppler waveform analysis. Left adnexa: Ovary: Normal. The left ovary measures 3.1 x 2.2 x 1.9 cm. Normal color and spectral Doppler waveform analysis. Free fluid: No significant free fluid. Procedure Note Joanna Clarke MD - 05/17/2022 US PELVIS TRANSABDOMINAL PLUS TRANSVAGINAL History: Low pelvic pain TECHNIQUE: Pelvic Ultrasound Transabdominal performed for global imagingof the pelvis. Pelvic Ultrasound Transvaginal performed for detailedimaging of the endometrium and/or adnexa. COMPARISON: Pelvic sonography 09/10/2019 FINDINGS: Uterus: Size: 8.7 x 4.1 x 5.2 cm. Orientation: anteverted Myometrium: Normal. Endometrium: The intrauterine device is a low-lying, at the lower uterinesegment Thickness: 4 mm. Right adnexa: Ovary: Normal. The right ovary measures 3.6 x 2.0 x 3.0 cm. Normal color andspectral Doppler waveform analysis. Left adnexa: Ovary: Normal. The left ovary measures 3.1 x 2.2 x 1.9 cm. Normal color andspectral Doppler waveform analysis. Free fluid: No significant free fluid. IMPRESSION: 1. Low-lying intrauterine device at the lower uterine segment.Repositioning and alternative contraception recommended. 2. Normal sonographic appearance of the bilateral ovaries. Findings discussed by Joanna Clarke MD with ANI Dyson in [facility] on 05/17/2022 at 4:45 PM. [facility] US PELVIS Final Result documented in this encounter Visit Diagnoses Diagnosis Adnexal pain- Primary Unspecified symptom associated with female genital organs Adnexal pain Unspecified symptom associated with female genital organs documented in this encounter Care Teams Policy And Planning Manager Relationship Specialty Start Date End Date Pcp, Unknown PCP - General 11/30/18 05/16/22 Stephanie Herrera FNP PCP - General Nurse Practitioner 05/17/22 10/29/23 [facility] PCP - General Nurse Practitioner 10/30/23 09/28/24 Stephanie Herrera FNP [address] [place] [address] PCP - General Nurse Practitioner 09/29/24 11/08/24 Stephanie Herrera FNP [address] [place] [address] PCP - General Nurse Practitioner 11/09/24 Stephanie Herrera FNP [address] [place] [address] Nurse Practitioner 11/09/24 Jenny Emerson PA-C [address] [place] [email or web address] Physician Hook Loader Physician Hook Loader 07/14/24 documented as of this encounter Additional Source Comments The information contained in this document represents components of the legal health record. It is not the complete legal health record.[facility]
== END 2024-11-18 18:09 | disposition home or self-care (01) ==
PROVIDERS: Physician Assistant Medical; Emergency Provider Student in an Organized Health Care Education/Training Program; PCP Nurse Practitioner
DX: L23.89 Allergic contact dermatitis due to other agents (principal); R21 Rash and other nonspecific skin eruption; T78.1XXA Other adverse food reactions, not elsewhere classified, initial encounter; X58.XXXA Exposure to other specified factors, initial encounter
CPT/HCPCS: 36415; 80053; 84702; 85025; 99283